=== PATIENT | female | born 1945 | race Caucasian/White ===

== ENCOUNTER 2020-02-02 07:26 | Outpatient (CLI) | payer MEDICARE, OTHER, SELFPAY ==
--- NOTE | ~2020-02-02 | XR_ITS ---
EXAMINATION: XR UGI w barium swallow DATE: 02/02/2020 08:30 INDICATION: Hiatal hernia. Gastroesophageal reflux disease without esophagitis. TECHNIQUE: The patient drank thick barium, gas-producing crystals, and thin barium. Fluoroscopic spot radiographs of the hypopharynx, esophagus, stomach and proximal small bowel were obtained. A total o f 1543 images were recorded. Fluoroscopy exposure time was 2.2 minutes. COMPARISON: None. FINDINGS: The pharynx is symmetric and without evidence of mass lesion or mucosal irregularity. There is a prom inent posterior cricopharyngeal muscle at the upper esophageal sphincter. The esophagus is normal wit hout mass or stricture. Mild esophageal dysmotility with mild weakening of the primary peristaltic wa ve and break up of the contrast bolus on one of the swallows and with mild tertiary contractions in t he distal esophagus. Moderate-sized sliding-type hiatal hernia with esophageal B ring at the gastroes ophageal junction which is positioned approximately 7 cm above level of the diaphragm. No significant stenosis resulting from the esophageal B ring which dilates to at least 1.8 cm. There was a single e pisode of spontaneous gastroesophageal reflux. There was reflux of contrast into the intrathoracic po rtion of the stomach but not additional gastroesophageal reflux with subsequent provocative maneuvers . The stomach and proximal small bowel are normal. Calcified left lower lobe nodule consistent with o ld granulomatous disease. IMPRESSION: 1. Moderate-sized sliding-type hiatal hernia with single episode of small amount of gastroesophageal reflux. Line 2. Prominent cricopharyngeal muscle. 3. Minimal esophageal dysmotility which could be related to presbyesophagus or chronic reflux. Reviewed, dictated and finalized at location A. ER PHOTOGRAPH IMPRESSION: 1. Moderate-sized sliding-type hiatal hernia with single episode of small amoun t of gastroesophageal reflux. Line 2. Prominent cricopharyngeal muscle. 3. Minimal esophageal dysmotility which could be related to presbyesophagus or chronic reflux.
== END 2020-02-02 07:27 | disposition home or self-care (01) ==
LOC: ANHIMG 07:29
PROVIDERS: PCP Internal Medicine; Visit Provider Surgery
DX: K21.9 Gastro-esophageal reflux disease without esophagitis (principal); K44.9 Diaphragmatic hernia without obstruction or gangrene; R13.10 Dysphagia, unspecified
CPT/HCPCS: 74240

== ENCOUNTER → 2020-02-02 12:12 | Outpatient (CLI) | payer MEDICARE, OTHER, SELFPAY ==
--- NOTE | ~2020-02-02 | MM_ITS ---
EXAMINATION: MM screening [facility] BI w sylwia HISTORY: Screening TECHNIQUE: Craniocaudal and mediolateral oblique 3-D tomosynthesis images were obtained and synthetic 2-D images were generated. CAD analysis was submitted and interpreted. COMPARISON: Comparison to multiple prior studies sequentially, with oldest reviewed study dated 06/2012. BREAST PARENCHYMAL COMPOSITION: There are scattered areas of fibroglandular density. FINDINGS: There is no evidence of suspicious mass, calcification, or architectural distortion to sugg est malignancy in either breast. There has been no suspicious interval change. IMPRESSION: 1. No mammographic evidence of malignancy. 2. Recommend routine screening mammography in one year. BI-RADS Category 1: Negative Reviewed, dictated and finalized at location A. IA WRAPPER MAKER
== END ==
PROVIDERS: PCP Internal Medicine; Visit Provider Internal Medicine
DX: Z12.31 Encounter for screening mammogram for malignant neoplasm of breast (principal)
CPT/HCPCS: 77063; 77067

== ENCOUNTER 2020-03-20 13:51 | Outpatient (CLI) | payer MEDICARE, OTHER, SELFPAY ==
--- NOTE | ~2020-03-20 | CT_ITS ---
EXAMINATION: CT abdomen pelvis wo con EXAM DATE: 03/20/2020 14:16 INDICATION: R10.33 - Periumbilical pain. TECHNIQUE: Spiral CT of the abdomen and pelvis was performed without contrast. Axial, coronal and sag ittal images were reviewed. The dose-length product (DLP) for this examination was 943.57 mGy-cm. T he exposure was tailored according to patient size (auto mA exposure control), and iterative reconstr uction (ASIR) was used as additional dose reduction technique. There is no prior study for compariso n. FINDINGS: Multicystic right kidney with minimal functioning tissue suspected. No nephrolithiasis or h ydronephrosis. The uterus is not identified and has likely been surgically resected. The bladder is unremarkable. The liver, spleen, adrenal glands and pancreas are unremarkable. Gallbladder not lorie ntified, patient likely has had cholecystectomy. There is no retroperitoneal or pelvic lymphadenopat hy. Tiny umbilical fat-containing hernia. The appendix is normal. There is mild sigmoid colonic diverticulosis. There is no adjacent inflammat ory change to suggest diverticulitis. There is small sliding gastroesophageal hiatal hernia. There i s expected amount of colonic stool. No free intraperitoneal gas. The heart is normal in size. Th ere are no pericardial or pleural effusions. The lung bases are unremarkable. There are no osteobla stic or osteolytic lesions identified. There is left basilar calcified granuloma. IMPRESSION: 1. Small umbilical fat-containing hernia. 2. Small sliding gastroesophageal hiatal hernia. 3. Multicystic right kidney. 4. Mild sigmoid diverticulosis. Reviewed, dictated and finalized at location A. CONTROL REPRESENTATIVE
== END 2020-03-20 13:52 | disposition home or self-care (01) ==
PROVIDERS: PCP Internal Medicine; Visit Provider Surgery
DX: R10.33 Periumbilical pain (principal); K44.9 Diaphragmatic hernia without obstruction or gangrene; K42.9 Umbilical hernia without obstruction or gangrene; N28.1 Cyst of kidney, acquired; K57.30 Diverticulosis of large intestine without perforation or abscess without bleeding
CPT/HCPCS: 74176

== ENCOUNTER 2020-07-29 07:54 | Outpatient (CLI) | payer MEDICARE, OTHER, SELFPAY ==
[2020-07-29 08:34] LABS: Hemoglobin A1C 6.2 % (<5.7)
[2020-07-29 08:41] LABS: Alanine Aminotransferase 11 U/L (4-35); Albumin Level 3.9 g/dL (3.5-5.1); Alkaline Phosphatase 85 U/L (38-126); Anion Gap 8 mmol/L (8-16); Aspartate Amino Transferase 24 U/L (14-36); Bilirubin,Total 0.3 mg/dL (0.2-1.3); Blood Urea Nitrogen 15 mg/dL (7-17); Calcium 9.1 mg/dL (8.4-10.2); Carbon Dioxide 28 mmol/L (22-30); Chloride 104 mmol/L (98-107); Cholesterol 190 mg/dL (0-200); Estimated Glomerular Filt Rate 54; Glucose 115 mg/dL (65-105); HDL Direct 60 mg/dL; Potassium 3.6 mmol/L (3.4-5.0); Sodium 140 mmol/L (137-145); Triglycerides 144 mg/dL (<150)
[2020-07-29 13:21] LABS: LDL Cholesterol Direct 84 mg/dL
== END 2020-07-29 07:55 | disposition home or self-care (01) ==
PROVIDERS: PCP Internal Medicine; Visit Provider Internal Medicine
DX: E78.2 Mixed hyperlipidemia (principal); R73.02 Impaired glucose tolerance (oral)
CPT/HCPCS: 36415; 80053; 80061; 83036

== ENCOUNTER 2020-09-03 01:14 | Day surgery (SDC) | payer MEDICARE, OTHER, SELFPAY ==
[2020-08-15 13:25] VITALS: BMI 37.8
--- NOTE | 2020-08-16 16:24 | PC.NURSE ---
SPOKE WITH PATIENT CONCERNING LUMP ON LEG. PT STATES IT IS SWOLLEN AND ABOUT THE SIZE OF AN EGG OR LEMON SHE STATES IT IS NOT RED NOR SORE. DR. LOMBARDO EXAMINED HER IN THE OFFICE AND ORDERED A DOPPLER ULTRASOUND TO R/O A BLOOD CLOT. PT STATES HE TOLD IT WAS UP TO HER IF SHE WANTED TO FOLLOW THROUGH WITH THE ULTRASOUND OR NOT. PT STATES SHE IS NOT CONCERNED ABOUT IT BUT DID SCHEDULE THE APPT. AND THEY COULD NOT GET HER IN FOR ONE MONTH, IT IS SCHED. ONE WEEK AFTER HER COLONOSCOPY. I TOLD HER THAT IF IT WOULD BECOME RED-INFLAMED OR SORE SHE SHOULD CALL DR. LOMBARDO IMMEDIATELY AND LET DR. AHMADI OFFICE ALSO KNOW.
[2020-09-03 08:02] VITALS: BP 151/62; PULSE 85; RESP 20; TEMP 36.2; O2SAT 100
[2020-09-03] MEDS: LACTATED RINGERS 1,000 ML 150 ML IV CONT (08:36)
--- NOTE | 2020-09-03 09:23 | PM.HPGS ---
History of Present Illness History of Present Illness Consent: Risks, benefits, and alternatives have been discussed and questions answered. Patient agrees to proceed with procedure. Chief complaint: neoplasm screening Narrative: Summer Arellano is a 74 year old female with several TA polyps removed 2019, due to have another colonoscopy Review of Systems Constitutional: Constitutional: Denies headache(s) and Denies weakness Eyes: Eyes: Denies blurry vision ENT: Reports Normal hearing present, Denies headache(s) and Denies neck pain Cardiovascular: Cardiovascular: Denies chest pain and Denies dyspnea Respiratory: Respiratory: Denies dyspnea Gastrointestinal: Gastrointestinal: Reports no additional gastrointestinal complaints Genitourinary: Genitourinary: Denies dysuria Musculoskeletal: Musculoskeletal: Denies neck pain Integumentary/Breasts: Skin/Breast: Denies dry skin Neurologic: Reports Normal hearing present, Denies headache(s) and Denies weakness Psychiatric: Psychiatric: Denies anxiety Endocrine: Endocrine: Denies change in body appearance Hematologic/Lymphatic: Hematologic/Lymphatic: Denies easy bleeding Allergic/Immunologic: Allergic/Immunologic: Denies urticaria PMF Past Medical History Medical History (Updated 05/22/20 @ 14:06 by MAI Velez) Achilles tendinitis CHF (congestive heart failure) Constipation GERD (gastroesophageal reflux disease) Heart disease High cholesterol History of blood transfusion 1985 Mitral valve prolapse Surgical History Surgical History H/O: hysterectomy History of knee replacement Hx of cholecystectomy Status post de Quervain's release surgery Status post surgical removal of malignant neoplasm of skin Family History Family History Mother Lung cancer Sibling COPD (chronic obstructive pulmonary disease) Grandparent Diabetes mellitus Other Family history of arthritis Family history of lung cancer Social History Social History Smoking status: Never smoker Alcohol intake: never Substance use: unknown Substance use type: does not use Living arrangements: alone Gender identity (if verbalized by the patient): Female Meds Home Medications and Allergies Home Medications Medication Instructions Recorded Confirmed Type alprazolam 0.5 mg tablet 0.5 mg PO DAILY 01/26/20 08/15/20 History fentanyl 50 mcg/hr transdermal 1 patch TRANSDERMAL Q72H 01/26/20 08/15/20 History patch furosemide 40 mg tablet 40 mg PO QAM 01/26/20 08/15/20 History omeprazole 40 mg capsule,delayed 40 mg PO DAILY 01/26/20 08/15/20 History release pregabalin 75 mg capsule 75 mg PO BID 01/26/20 08/15/20 History simvastatin 10 mg tablet 10 mg PO DAILY 01/26/20 08/15/20 History aspirin 81 mg PO DAILY 08/15/20 08/15/20 History vitamins A,C,I-iqsy-tvgnpo [ICaps 1 tablet PO ONCE 08/15/20 08/15/20 History AREDS] Allergies Allergy/AdvReac Type Severity Reaction Status Date / Time prednisone Allergy Intermediate DEEP Verified 09/03/20 08:00 DEPRESSION topiramate Allergy Intermediate MIGRAINE Verified 09/03/20 08:00 carbamazepine Allergy Mild I Verified 09/03/20 08:00 COULDN'T TALK adhesive tape Allergy Unknown RASH Verified 09/03/20 08:00 bacitracin Allergy Unknown rash Verified 09/03/20 08:00 neomycin Allergy Unknown ITCHING/BURNING Verified 09/03/20 08:00 SENSATION Penicillins Allergy Unknown Rash Verified 09/03/20 08:00 polymyxin B Allergy Unknown Rash Verified 09/03/20 08:00 clindamycin Allergy Hives Verified 09/03/20 08:00 morphine AdvReac Intermediate Other Verified 09/03/20 08:00 cephalexin [From Keflex] AdvReac Mild Rash Verified 09/03/20 08:00 nickel AdvReac Mild SKIN MILLIGAN Verified 09/03/20 08:00 oxytetracycline AdvReac Rash Verified 09/03/20 08:00
[2020-09-03 09:52] VITALS: BP 127/70; PULSE 64; RESP 19; O2SAT 94
[2020-09-03 10:02] VITALS: BP 128/52; PULSE 55; RESP 19; O2SAT 97
[2020-09-03 10:12] VITALS: BP 132/77; PULSE 58; RESP 18; O2SAT 97
== END 2020-09-03 10:33 | disposition home or self-care (01) ==
PROVIDERS: PCP Internal Medicine; Visit Provider Internal Medicine Gastroenterology
PROC: 0DJD8ZZ Inspection of Lower Intestinal Tract, Via Natural or Artificial Opening Endoscopic (ICD-10-PCS; CPT 45378; principal; 2020-09-03 09:30)
DX: Z12.11 Encounter for screening for malignant neoplasm of colon (principal); D12.2 Benign neoplasm of ascending colon; K63.5 Polyp of colon; K64.8 Other hemorrhoids; I50.9 Heart failure, unspecified; K21.9 Gastro-esophageal reflux disease without esophagitis; I34.1 Nonrheumatic mitral (valve) prolapse; Z90.49 Acquired absence of other specified parts of digestive tract; Z79.82 Long term (current) use of aspirin
CPT/HCPCS: 45385; 88305; J2704; J7120

== ENCOUNTER 2021-01-24 07:55 | Outpatient (CLI) | payer MEDICARE, OTHER, SELFPAY ==
[2021-01-24 08:55] LABS: Hemoglobin A1C 6.1 % (<5.7)
[2021-01-24 08:57] LABS: Alanine Aminotransferase 14 U/L (4-35); Albumin Level 4.2 g/dL (3.5-5.1); Alkaline Phosphatase 95 U/L (38-126); Anion Gap 7 mmol/L (8-16); Aspartate Amino Transferase 24 U/L (14-36); Bilirubin,Total 0.6 mg/dL (0.2-1.3); Blood Urea Nitrogen 12 mg/dL (7-17); CRP 0.5 mg/dL (<1.0); Calcium 9.2 mg/dL (8.4-10.2); Carbon Dioxide 29 mmol/L (22-30); Chloride 100 mmol/L (98-107); Cholesterol 193 mg/dL (0-200); Estimated Glomerular Filt Rate > 60; Glucose 113 mg/dL (65-110); HDL Direct 66 mg/dL; Potassium 3.6 mmol/L (3.4-5.0); Sodium 136 mmol/L (137-145); Triglycerides 174 mg/dL (<150)
[2021-01-24 09:00] LABS: Erythrocyte Sedimentation Rate 21 mm/hr (0-20)
[2021-01-24 09:08] LABS: LDL Cholesterol Direct 80 mg/dL
[2021-01-24 10:22] LABS: Creatinine Urine 168.7 mg/dL
[2021-01-24 10:38] LABS: MALB Creatinine Ratio < 3.6 mg/g (0-30); Microalbumin Urine Random < 6.0 mg/L (0-16.7)
== END 2021-01-24 07:56 | disposition home or self-care (01) ==
PROVIDERS: PCP Internal Medicine; Referring Provider Internal Medicine
DX: M25.562 Pain in left knee (principal); E78.2 Mixed hyperlipidemia; R73.02 Impaired glucose tolerance (oral)
CPT/HCPCS: 36415; 80053; 80061; 82043; 83036; 85652; 86140

== ENCOUNTER 2021-07-29 09:25 | Outpatient (CLI) | payer OTHER, SELFPAY ==
[2021-07-29 10:05] LABS: Hemoglobin A1C 6.1 % (<5.7)
[2021-07-29 10:17] LABS: LDL Cholesterol Direct 74 mg/dL
[2021-07-29 10:27] LABS: Alanine Aminotransferase 11 U/L (6-35); Alkaline Phosphatase 91 U/L (38-126); Anion Gap 5 mmol/L (8-16); Aspartate Amino Transferase 22 U/L (14-36); Bilirubin,Total 0.5 mg/dL (0.2-1.3); Blood Urea Nitrogen 11 mg/dL (7-17); Carbon Dioxide 29 mmol/L (22-30); Chloride 105 mmol/L (98-107); Cholesterol 185 mg/dL (0-200); Estimated Glomerular Filt Rate > 60; Glucose 131 mg/dL (65-110); HDL Direct 61 mg/dL; Potassium 3.7 mmol/L (3.4-5.0); Sodium 139 mmol/L (137-145); Triglycerides 164 mg/dL (<150)
== END 2021-07-29 09:26 | disposition home or self-care (01) ==
PROVIDERS: PCP Internal Medicine; Visit Provider Internal Medicine
DX: E78.2 Mixed hyperlipidemia (principal); R73.02 Impaired glucose tolerance (oral)
CPT/HCPCS: 36415; 80053; 80061; 83036

== ENCOUNTER → 2021-10-15 13:27 | Outpatient (CLI) | payer OTHER, SELFPAY ==
--- NOTE | ~2021-10-15 | MM_ITS ---
EXAMINATION: MM screening [facility] BI w sylwia HISTORY: Screening TECHNIQUE: Craniocaudal and mediolateral oblique 3-D tomosynthesis images were obtained and synthetic 2-D images were generated. CAD analysis was submitted and interpreted. COMPARISON: Comparison to multiple prior studies sequentially, with oldest reviewed study dated 06/2012. BREAST PARENCHYMAL COMPOSITION: There are scattered areas of fibroglandular density. FINDINGS: There is no evidence of suspicious mass, calcification, or architectural distortion to sugg est malignancy in either breast. There has been no suspicious interval change. IMPRESSION: 1. No mammographic evidence of malignancy. 2. Recommend routine screening mammography in one year. BI-RADS Category 1: Negative Reviewed, dictated and finalized at location A.
== END ==
PROVIDERS: PCP Internal Medicine; Visit Provider Internal Medicine
DX: Z12.31 Encounter for screening mammogram for malignant neoplasm of breast (principal)
CPT/HCPCS: 77063; 77067

== ENCOUNTER 2022-02-04 09:18 | Outpatient (CLI) | payer OTHER, SELFPAY ==
[2022-02-04 11:01] LABS: Alanine Aminotransferase 19 U/L (6-35); Albumin Level 4.3 g/dL (3.5-5.1); Alkaline Phosphatase 88 U/L (38-126); Anion Gap 6 mmol/L (8-16); Aspartate Amino Transferase 31 U/L (14-36); Bilirubin,Total 0.5 mg/dL (0.2-1.3); Blood Urea Nitrogen 9 mg/dL (7-17); Calcium 8.9 mg/dL (8.4-10.2); Carbon Dioxide 31 mmol/L (22-30); Chloride 100 mmol/L (98-107); Cholesterol 202 mg/dL (0-200); Estimated Glomerular Filt Rate > 60; Glucose 113 mg/dL (65-110); HDL Direct 61 mg/dL; Potassium 3.2 mmol/L (3.4-5.0); Sodium 137 mmol/L (137-145); Triglycerides 200 mg/dL (<150)
[2022-02-04 11:12] LABS: LDL Cholesterol Direct 81 mg/dL
[2022-02-04 11:38] LABS: Hemoglobin A1C 6.3 % (<5.7)
== END 2022-02-04 09:19 | disposition home or self-care (01) ==
LOC: ANHLAB 09:20
PROVIDERS: PCP Internal Medicine; Visit Provider Internal Medicine
DX: E78.2 Mixed hyperlipidemia (principal); R73.02 Impaired glucose tolerance (oral)
CPT/HCPCS: 36415; 80053; 80061; 83036

== ENCOUNTER 2022-08-12 09:46 | Outpatient (CLI) | payer OTHER, SELFPAY ==
[2022-08-12 10:21] LABS: Alanine Aminotransferase 19 U/L (6-35); Albumin Level 4.2 g/dL (3.5-5.1); Alkaline Phosphatase 83 U/L (38-126); Anion Gap 4 mmol/L (8-16); Aspartate Amino Transferase 28 U/L (14-36); Bilirubin,Total 0.6 mg/dL (0.2-1.3); Blood Urea Nitrogen 14 mg/dL (7-17); Calcium 8.6 mg/dL (8.4-10.2); Carbon Dioxide 31 mmol/L (22-30); Chloride 103 mmol/L (98-107); Cholesterol 187 mg/dL (0-200); Estimated Glomerular Filt Rate > 60; Glucose 124 mg/dL (65-110); HDL Direct 66 mg/dL; Potassium 3.6 mmol/L (3.4-5.0); Sodium 138 mmol/L (137-145); Triglycerides 158 mg/dL (<150)
[2022-08-12 10:34] LABS: LDL Cholesterol Direct 80 mg/dL
[2022-08-12 10:44] LABS: Creatinine Urine 102.3 mg/dL
[2022-08-12 10:49] LABS: MALB Creatinine Ratio < 5.9 mg/g (0-30); Microalbumin Urine Random < 6.0 mg/L (0-16.7)
== END 2022-08-12 09:47 | disposition home or self-care (01) ==
PROVIDERS: PCP Internal Medicine; Visit Provider Internal Medicine
DX: R73.02 Impaired glucose tolerance (oral) (principal); E78.2 Mixed hyperlipidemia; I10 Essential (primary) hypertension
CPT/HCPCS: 36415; 80053; 80061; 82043; 83036

== ENCOUNTER → 2022-12-03 14:01 | Outpatient (CLI) | payer OTHER, SELFPAY ==
--- NOTE | ~2022-12-03 | MM_ITS ---
EXAMINATION: MM screening [facility] BI w sylwia HISTORY: Screening mammogram TECHNIQUE: Craniocaudal and mediolateral oblique 3-D tomosynthesis images were obtained and synthetic 2-D images were generated. CAD analysis was submitted and interpreted. COMPARISON: 10/11/2021, 02/02/2020, 11/11/2018 bilateral screening mammogram examinations BREAST PARENCHYMAL COMPOSITION: The breasts are almost entirely fatty. FINDINGS: Scattered benign calcifications. There is no evidence of suspicious mass, calcification, or architectural distortion to suggest malignancy in either breast. There has been no suspicious interv al change. IMPRESSION: 1. No mammographic evidence of malignancy. 2. Recommend routine screening mammography in one year. BI-RADS Category 2: Benign finding(s). Reviewed, dictated and finalized at location A.
== END ==
PROVIDERS: PCP Internal Medicine; Visit Provider Internal Medicine
DX: Z12.31 Encounter for screening mammogram for malignant neoplasm of breast (principal)
CPT/HCPCS: 77063; 77067

== ENCOUNTER 2023-12-06 13:08 | Outpatient (CLI) | payer OTHER, SELFPAY ==
--- NOTE | ~2023-12-06 | MM_ITS ---
EXAMINATION: MM screening [facility]bert BI w sylwia HISTORY: Screening TECHNIQUE: Craniocaudal and mediolateral oblique 3-D tomosynthesis images were obtained and synthetic 2-D images were generated. CAD analysis was submitted and interpreted. COMPARISON: Comparison to multiple prior studies sequentially, with oldest reviewed study dated 11/21. BREAST PARENCHYMAL COMPOSITION: Not dense: There are scattered areas of fibroglandular density. FINDINGS: There is no evidence of suspicious mass, calcification, or architectural distortion to sugg est malignancy in either breast. There has been no suspicious interval change. IMPRESSION: 1. No mammographic evidence of malignancy. 2. Recommend routine screening mammography in one year. BI-RADS Category 1: Negative Reviewed, dictated and finalized at location B.
== END 2023-12-06 13:09 | disposition home or self-care (01) ==
PROVIDERS: PCP Internal Medicine; Visit Provider Internal Medicine
DX: Z12.31 Encounter for screening mammogram for malignant neoplasm of breast (principal)
CPT/HCPCS: 77063; 77067

== ENCOUNTER 2025-01-01 10:08 | Outpatient (CLI) | payer MEDICARE, SELFPAY ==
--- OUTSIDE RECORDS SUMMARY | 2009-10-09 02:30 | XMS_ITS | Continuity of Care Document ---
Author Organization [facility] Address [address] [place] [address] Phone Care Team Providers Care Grating Machine Operator Name Role Phone Aj Simmons Unavailable Unavailable Procedures Procedure Date Eye Exam & Treatment Dilated Retinal Exam W Interpretation Au Refraction Eye Exam & Treatment Dilated Retinal Exam W Interpretation Ju No Script Refraction Eye Exam & Treatment Refraction Advance Directives Directive Yes / No Effective Date File Name No Information Encounters Encounter Description Practice Location Reason(s) For Visit Diagnoses Date Provider Providers Copied on Encounter [facility], [address] [place] [address] [address], [place], [place], [id number], tel:[phone] [facility] No Information 8-201 0 Iris Rocha. [address] , [address], [place], [place], [facility], . tel:[phone] [facility], [id number] [place] [address] [address], [place], [place], [id number], [place] tel:[phone] [facility] No Information 1-200 9 Iris Rocha. [address] , [address], [place], [place], [facility], . tel:[phone] [facility], [id number] [place] [address] [address], [place], [place], [id number], tel:[phone] [facility] No Information 8 Iris Rocha. [address] , [address], [place], [address], [place]. tel:[phone] Family History Family Member Type Diagnosis Age At Onset No Information Payers Payer name Insurance type Covered green party ID Authoriza tion(s) [place] [id number] [facility] Commercial CI [id number] Social History Type Description Quantity Date Captured Comments Sex Female Smoking Status No Information Chief Complaint And Reason For Visit No Information Reason For Referral Reason For Referral No Information History Of Present Illness Encounter Date Complaint History Of Prese nt Illness No Information Functional Status Date Functional Assessmen t No Information Instructions Date Instruction Additional Infor mation No Information Assessments Type Assessment Date No Information Patient Care Teams Name Effective Dates (start - stop) Status Members No Information
--- OUTSIDE RECORDS SUMMARY | 2025-01-01 10:50 | XMS_ITS | Data Portability ---
Author Organization [facility], [facility] Address [address] [place] [address] Care Team Providers Care Health Promoter Name Role Phone LEONARD LOMBARDO Primary Care Provider [phone] Assessment Encounter Date Assessment Date Assessment LastModified by Organization Details LastModified Time 09/18/2022 09/18/2022 76 y/o female with history of nephrectomy (1 kidney) hypertension, pre-diabetes, congestive heart failure, and dyslipidemia. Presenting with bilateral lower extremity pain at rest. This most likely represents critical limb ischemia which puts him at a high risk for skin breakdown and/or loss of limb. In addition, she displays symptoms of venous insufficiency with lower extremity edema with CEAP grade 3 bilaterally. She reports she has tried wearing compression stockings but they cause her more pain. My recommendation is lower extremity arterial and venous ultrasound for further evaluation. I will discuss with her the results of her lower extremity ultrasounds with her at her follow up visit. Of note, she also reports having sciatica with degenerative disk disease which could be contributing to her inability to walk longer distances. I spent a total of 45 minutes with the patient. The time was spent reviewing the chart ,discussing with patient and/or family and forming a treatment plan. [email or web address] Not available 09/19/2022 01:18:53 Plan of Treatment Reminders Order Date Submit Date Provider Last Modified By Organization Details Last Modified Time Details Appointments None record ed. Lab None record ed. Referral None record ed. Procedures None record ed. Surgeries None record ed. Imaging None record ed. Medication Orders None record ed. Patient TargetsNo targets recorded. Patient InstructionsNo instructions recorded. Reason for Referral None Reported. Medical Equipment None Reported. Allergies Allergen ID Allergen Name Allergen Category Reaction Reaction Severity Criticality Documentation Date Start Date Code Code System Note Provider Name and Address Organization Details Recorded Time 8789 Product containin g penicilli n (product) medicatio n Not available Not available Not available 09/18/2022 31948 8001 SNOMED [facility] 11:36:23 8865 Keflex medicatio n Not available Not available Not available 09/18/202243205 7 RxNorm [facility] 11:36:30 8866 Iodinated contrast media (substanc e) medicatio n Not available Not available Not available 09/18/2022 02017 2003 SNOMED [facility] 11:36:50 Medications Name Sig Start Date Stop Date Status Note LastModified by Organization Details LastModified Time furosemide 10 mg/mL injection solution Inject 4 mL twice a day by intramuscul ar route. active Not Available Not Available No t Available Xanax 0.5 mg tablet Take 1 tablet 3 times a day by oral route. active Not Available Not Available No t Available omeprazole 40 mg capsule,lucina yed release Take 1 capsule every day by oral route. active Not Available Not Available No t Available simvastatin 40 mg tablet Take 1 tablet every day by oral route. active Not Available Not Available No t Available doxycycline monohydrate 50 mg tablet active Not Available Not Available Not Available amlodipine active Not Available Not Av ailable Not Available Vitals Date Recorded Body height Body mass index (BMI) Body weight Provider Name and Address Organization Details Last Updated DateTime 09/18/2022 160.02 cm 37.2 kg/m2 33347.4 g [facility] 09/18/2022 11:35:55 Social History Question Answer Notes LastModified by Organizat ion Details LastModified Time Tobacco Smoking Status Never Smoker [facility] 09/18/2022 11:39:07 What Was The Date Of Your Most Recent Tobacco Screening? 09/18/2022 [email or web address] Information not available 09/18/2022 Sex: Unknown Functional Status None recorded. Mental Status None recorded. Family History Nothing Reported. Medical History Condition Response Hyperlipidemia Y Heart Disease Y Kidney Disease Y Gynecological HistoryNo gynecological history recorded. Obstetrics History GPAL:G 0 P 0 0 0 0 Past Encounters Encounter ID Performer Location Encounter Start Date Encounter Closed Date Diagnosis/Indication Diagnosis SNOMED-CT Code Diagnosis ICD10 Code Diagnosis IMO Codes Diagnosis Note Duarte Newton MD [facility] ) [address] [place] [address] 09/18/2022 11:15:29 09/21/2022 12:31:56 Varicose veins of lower extremity 34077589 I83.893 Primary ve nous insufficiency of lower limb 799142925 I87.2 Bilateral lower limb pain at rest due to atherosclerosis 0530884726 4037404 I70.223 Edema of l ower extremity 351817272 R60.0 Health Concerns Section Related Observation LastModified by Organization Detai ls LastModified Time None Recorded Concern Status LastModified by Organization Details LastModified Time None Recorded Advance Directives Directive None Recorded Payers Insurance Date Sequence Insurance Name Policy Number Policy Quintana Covered Member ID Quintana Member ID Guarantor Name 09/21/2022 1 [facility] (MEDICARE REPLACEMENT HMO) [id number] [employer] [place] [id number] [employer] [place] Notes Date Note Type Note Provider Name and Address Organization Details Recorded Time 09/19/19 23 text/htm l OA Arterial Occlusive Disease: Lower ExtremityReported by PatientHPIFor severity, patient reportsmoderate. For associated symptoms, patient reportsweakness. For location, patient reportsbilateral le (left is worse than right). For quality, patient reportsaching. For onset/timing, patient reportsat night,with exercise begins at <1/2 block, andwakes from sleep. For alleviating factors, patient reportsrestandelevation. For aggravating factors, patient reportswalkingandstanding. For context, (pre-diabetes). Varicose Vein or Venous insufficiencyReported by PatientHPIFor quality, patient reportsachingandthrobbingbut reportsworse at nightandlegs do not swell equally (left swells more than right). For associated symptoms, patient reportsswelling,heaviness,discol oration, andcharacter: cramping. For severity, patient reportsmoderate. For location, patient reportsbilateral (left is worse than right). For context, patient reportscompression stockings (for how long?) 6 months (she stated that they do not help.she states the compression therapy causes more pain.). For alleviating factors, patient reportselevationandrest. For aggravating factors, patient reportsweight bearingandprolonged standing. For functional status, patient reportsactivities of daily living. For sleep, patient reportssleep disturbances: insomnia: difficulty falling asleep: because of pain. 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
--- OUTSIDE RECORDS SUMMARY | 2025-01-01 10:50 | XMS_ITS | Clinical Summary ---
Author Organization [facility] Address [address] [place] [address] Care Team Providers Care Business Programmer Name Role Phone Clifford Cruz MD Primary Care Provider Source Comments [facility],non-owned Affiliates and Associated Physician Practices is amultiple site organization consisting of ambulatory clinics and hospital sitesin [place], [place], [place] and [place]. This disclosure is being madepursuant to the Care Everywhere program and may not contain all information available regarding this patient. Last updated 17.[facility] Allergies Active Allergy Reactions Criticality Noted Date Comments Bacitracin Rash Medium 12/17/2020 Reaction: rash, blisters, , Reaction: rash, blisters, Carbamazepine Other 12/17/2020 Reaction: felt slow with speech, Cephalexin Rash Medium 01/27/2017 Rash and itching. Clindamycin Urticaria Medium 04/18/2018 Reaction: hives, rash, Dibucaine Other Low 12/17/2020 Reaction: skin irritation, pain, burning, Gkacksjw-Vingkheuoa-Enujc yxin Itching 04/18/2018 Penicillins Urticaria,Other Medium 04/18/2018 Reaction: Other, , , Polymyxin B Rash High 12/17/2020 Reaction: rash, blisters, Prednisone Psychiatric,Other Medium 04/18/2018 depression Sertraline Psychiatric Medium 12/17/2020 Topiramate Headache,Other Low 04/18/2018 migraine Venlafaxine Urticaria Medium 12/17/2020 Reaction: Hives, , , Medications * Be aware that medications may not be up to date on this document. Alwaysverify current medications with the patient. ALPRAZolam (XANAX) 0.5 MG tablet 12/16/2020 Active fentaNYL (DURAGESIC) 50 MCG/HR patch APPLY ONE PATCH TO THE SKIN ONCE EVERY 3 DAYS (REMOVE OLD PATCH BEFORE APPLYING A NEW PATCH) 12/16/2020 Active furosemide (LASIX) 40 MG tablet 11/19/2020 Active hydrOXYzine hcl (ATARAX) 25 MG tablet 09/11/2020 Active omeprazole (PRILOSEC) 40 MG capsule 11/19/2020 Active pregabalin (LYRICA) 75 MG capsule 09/12/2020 Active simvastatin (ZOCOR) 20 MG tablet 11/19/2020 Active tobramycin-dexA METHasone (TOBRADEX) 0.3-0.1 % ophthalmic suspension 07/21/2019 Active Active Problems Problem Noted Date Diagnosed Date Unstable angina 05/14/2021 Varicose veins of both lower extremities 021 Overview (05/23/2021): Last Assessment & Plan: Patient has been small minimal asymptomatic varicose veins of the left calf. This is not consistent with her ongoing chronic discomfort of her lower extremities particularly involving the left knee joint. She has had a previous venous duplex which is negative for DVT. She does not require further vascular workup. Continue exercise attempted weight loss compression therapy and follow-up with me on a p.r.n. basis. She has no known vascular Issues that would preclude left total knee replacement. 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 Gender Identity Not on file Sexual Orientation Not on file Last Filed Vital Signs Vital Sign Reading Time Taken Comments Blood Pressure - - Pulse - - Temperature - - Respiratory Rate - - Oxygen Saturation - - Inhaled Oxygen Concentration - - Weight 95.3 kg (210 lb) 12/17/2020 1:41 PM CDT Height 160 cm (5' 3) 12/17/2020 1:41 PM CDT Body Mass Index 37.2 12/17/2020 1:41 PM CDT Plan of Treatment Health Maintenance Due Date Last Done Comments BONE DENSITY TESTING 1945 DTAP/TDAP/TD VACCINES (1 - Tdap) 09/21/1962 PNEUMOCOCCAL VACCINE 50+ (1 of 1 - PCV) 09/21/1993 ZOSTER VACCINE (1 of 2) 09/21/1993 Respiratory Syncytial Virus (RSV) Vaccine Pt: or over 60 yrs (1 - 1-dose 75+ series) 09/21/2018 DEPRESSION SCREENING 02/23/2024 MEDICARE AWV CALENDAR YEAR 2024 COVID-19 VACCINE ( - season) 2024 12/03/2022, 05/07/2020, 04/16/2020 INFLUENZA VACCINE (#1) 2024 , 11/15/2020, 12/06/2019, Additional history exists HEPATITIS B VACCINE Aged Out No longe r eligible based on patient's age to complete this topic HIB VACCINE Aged Out No longer eligi ble based on patient's age to complete this topic HPV VACCINE Aged Out No longer eligi ble based on patient's age to complete this topic MENINGOCOCCAL (Group B) VACCINE SHARED DECISION-MAKING Aged Out No longer eligible based on patient's age to complete this topic MENINGOCOCCAL GROUPS A/C/Y/W VACCINE Aged Out No longer eligible based on patient's age to complete this topic Insurance [employer] MANAGED MEDICARE ADV Care Teams Business Programmer Relationship Specialty Start Date End Date Clifford Cruz MD [address] [facility] [address] [place] [id number] PCP - General Internal Medicine 12/17/20
--- OUTSIDE RECORDS SUMMARY | 2025-01-01 10:50 | XMS_ITS | Encounter Summary ---
Author Organization [facility] Address [address] [facility] [place] [address] Care Team Providers Care Managing Partner Name Role Phone Clifford Cruz MD Primary Care Provider Encounter Details Date Type Department Care Team (Late st Contact Info) Description 04/26/2023 Lab Requisition [facility] - DermPath Lab [address] [facility] [place] [address] Rose Mary Arroyo MD [address] [facility] [address] [place] [address] Social History Tobacco Use Types Packs/Day Years Used Date Smoking Tobacco: Never Smokeless Tobacco: Never Comments Unknown Sex and Gender Information Value Date Recorded Sex Assigned at Not on file Legal Sex Female 6:05 PM DOCK SUPERINTENDENT Gender Identity Not on file Sexual Orientation Not on file documented as of this encounter Plan of Treatment Not on file documented as of this encounter Procedures Procedure Name Priority Date/Time Associated Diagnosis Comments DERMATOPATHOLOGY Routine 04/26/2023 1:03 PM DOCK SUPERINTENDENT documented in this encounter Results * DERMATOPATHOLOGY (04/26/2023 1:03 PM DOCK SUPERINTENDENT) Case Report Dermatopathology Report Case: [id number] Authorizing Provider: Rose Mary Arroyo MD Collected: 04/26/2023 01:03 PM Ordering Location: [facility] - Received: 04/27/2023 12:25 PM DermPath Lab Pathologist: Pascale Chapman MD Specimen: Skin, right cheek 11:22 AM DOCK SUPERINTENDENT DERMATOPATHOLOGY LABORATORY Final Diagnosis Specimen A. SKIN, right cheek: BENIGN VERRUCOUS KERATOSIS (L82.1) (see comment) 11:22 AM [facility] DERMATOPATHOLOGY LABORATORY at [address] DOCK SUPERINTENDENT Clinical History R/o SCC, Follicular Tumor, r/o SK 11:22 AM [facility] DERMATOPATHOLOGY LABORATORY Gross Description Specimen A: Received is one formalin filled container labeled with the patient's name and designated right cheek. The specimen consists of a shave biopsy measuring 4x4x1 mm. Jar 0. 11:22 AM [facility] DERMATOPATHOLOGY LABORATORY Microscopic Description Specimen A. SKIN, right cheek: Sections show hyperkeratosis, papillomatosis, hypergranulosis, and acanthosis. These histological findings can be seen in a verruca vulgaris or a seborrheic keratosis. COMMENT: Given the superficial nature of the biopsy specimen, a deeper dermal process cannot be excluded. 11:22 AM [facility] DERMATOPATHOLOGY LABORATORY Disclaimer An external and internal positive and negative controls are appropriate for the histochemical, immunohistochemical and immunofluorescence stain(s) in this case (if any), except where stated explicitly. The performance characteristics of the stain(s) cited in this report were developed and its performance characteristic determined by the Dermatopathology Laboratory at [facility], directed by Dr. Armin Cao. These tests need not be, and therefore are not, approved by the [place] Food and Drug Administration. The tests are used for clinical purposes. Billing Codes Specimen Charges Stain Charges 78056 1 11:22 AM [facility] DERMATOPATHOLOGY LABORATORY Embedded Images 11:22 AM [facility] DERMATOPATHOLOGY LABORATORY Pathology/Cytolo gy TISSUE SPECIMEN FROM SKIN / Unknown 04/26/2023 1:03 PM DOCK SUPERINTENDENT 04/27/2023 12:25 PM [facility] us Rose Mary Arroyo MD LAB - PATHOLOGY/CYTOLOGY ORD ERABLES Final Result DERMATOPATHOLOGY LABORATORY [facility] - Department of Dermatology [address], [address] [phone] documented in this encounter Visit Diagnoses Not on filedocumented in this encounter Care Teams Managing Partner Relationship Specialty Start Date End Date Clifford Cruz MD [address] [place] [address] [address] [place], [place] [address] [address] PCP - General Internal Medicine 12/17/20 documented as of this encounter
--- OUTSIDE RECORDS SUMMARY | 2025-01-01 10:50 | XMS_ITS | Encounter Summary ---
Author Organization [facility] Address [address] [place] [address] Care Team Providers Care Clock Assembler Name Role Phone Clifford Cruz MD Primary Care Provider Encounter Details Date Type Department Care Team (Late st Contact Info) Description 12/07/2023 Lab Requisition [facility] - DermPath Lab [address] [facility] [place] [phone] Rose Mary Arroyo MD [address] [facility] [address] [place] [address] Social History Tobacco Use Types Packs/Day Years Used Date Smoking Tobacco: Never Smokeless Tobacco: Never Comments Unknown Sex and Gender Information Value Date Recorded Sex Assigned at Not on file Legal Sex Female 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 Gender Identity Not on file Sexual Orientation Not on file documented as of this encounter Plan of Treatment Not on file documented as of this encounter Procedures Procedure Name Priority Date/Time Associated Diagnosis Comments DERMATOPATHOLOGY Routine 12/07/2023 9:50 AM CDT documented in this encounter Results * DERMATOPATHOLOGY (12/07/2023 9:50 AM CDT) Case Report Dermatopathology Report Case: [id number] Authorizing Provider: Rose Mary Arroyo MD Collected: 12/07/2023 09:50 AM Ordering Location: [facility] - Received: 12/08/2023 06:16 AM DermPath Lab Pathologist: Wu Cao MD Specimen: Skin, left cheek 6:10 PM CDT DERMATOPATHOLOGY LABORATORY Final Diagnosis Specimen A. 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 The specimen consists of a shave biopsy measuring 9x8x3 mm. Jar 0. 6:10 PM T DERMATOPATHOLOGY LABORATORY Microscopic Description Specimen A. SKIN, left cheek: There is a cup-shaped lesion with central hyperkeratosis with elements of parakeratosis. The epithelial cells making up the mullen of the cup show abundant eosinophilic cytoplasm. There is immaturity of the keratinocytes in the outermost layers of this epithelium. In the dermis there is marked fibroplasia with a mixed inflammatory infiltrate containing eosinophils. Additional deeper sections were obtained and reviewed. 6:10 PM [facility] DERMATOPATHOLOGY LABORATORY Disclaimer An external and internal positive and negative controls are appropriate for the histochemical, immunohistochemical and immunofluorescence stain(s) in this case (if any), except where stated explicitly. The performance characteristics of the stain(s) cited in this report were developed and its performance characteristic determined by the Dermatopathology Laboratory at [facility], directed by Dr. Armin Cao. These tests need not be, and therefore are not, approved by the [place] Food and Drug Administration. The tests are used for clinical purposes. Billing Codes Specimen Charges Stain Charges 41091 1 4 6:10 PM CDT DERMATOPATHOLOGY LABORATORY Embedded Images 4 6:10 PM CDT DERMATOPATHOLOGY LABORATORY Pathology/Cytolo gy TISSUE SPECIMEN FROM SKIN / Unknown 12/07/2023 9:50 AM CDT 12/08/2023 6:16 AM CDT us Rose Mary Arroyo MD LAB - PATHOLOGY/CYTOLOGY ORD ERABLES Final Result DERMATOPATHOLOGY LABORATORY [facility] - Department of Dermatology [facility] [address] [facility], [address] [phone] documented in this encounter Visit Diagnoses Not on filedocumented in this encounter Care Teams Clock Assembler Relationship Specialty Start Date End Date Clifford Cruz MD [address] [place] [address] [address]LL [address] [place] [address] PCP - General Internal Medicine 12/17/20 documented as of this encounter
--- OUTSIDE RECORDS SUMMARY | 2025-01-01 10:50 | XMS_ITS | Encounter Summary ---
Author Organization [facility] Address [address] [place] [address] Care Team Providers Care Change Management Administrator Name Role Phone Clifford Cruz MD Primary Care Provider Encounter Details Date Type Department Care Team (Late st Contact Info) Description 12/13/2019 Lab Requisition [facility] DermPath Lab [address] [facility] [facility] [address] [place] [address] Orestes Almanza MD [address] [address] Social History Tobacco Use Types Packs/Day Years Used Date Smoking Tobacco: Never Assessed Comments Unknown Sex and Gender Information Value Date Recorded Sex Assigned at Not on file Legal 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 Female 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 Gender Identity Not on file Sexual Orientation Not on file documented as of this encounter Plan of Treatment Not on file documented as of this encounter Procedures Procedure Name Priority Date/Time Associated Diagnosis Comments DERMATOPATHOLOGY Routine 12/12/2019 12:0 0 AM CDT documented in this encounter Results * DERMATOPATHOLOGY (12/12/2019 12:00 AM CDT) Case Report Dermatopathology Report Case: [id number] Authorizing Provider: Orestes Almanza MD Collected: 12/12/2019 12:00 AM Ordering Location: [facility] DermPath Lab Received: 12/13/2019 02:58 PM Pathologist: Kimmy Pham MD Specimen: Skin, right lower leg 0 3:13 PM CDT DERMATOPATHOLOGY LABORATORY Final Diagnosis Specimen A. SKIN, right lower leg: HYPERPLASTIC (HYPERTROPHIC) ACTINIC KERATOSIS (L57.0) HEALING SKIN CHANGES (L90.5) STASIS DERMATITIS (L30.8) (see microscopic description) 0 3:13 PM CDT DERMATOPATHOLOGY LABORATORY at 1513 CDT Clinical History DF vs SK vs BCCA. Path # [id number]. 0 3:13 PM CDT DERMATOPATHOLOGY LABORATORY Gross Description Specimen A: Received is one formalin filled container labeled with the patient's name and designated right lower leg. The specimen consists of a shave biopsy measuring [id number]. Jar 0. 0 3:13 PM CDT DERMATOPATHOLOGY LABORATORY Microscopic Description Specimen A. SKIN, right lower leg: There is hyperkeratosis alternating with parakeratosis. There is epidermal hyperplasia with disorderly maturation of keratinocytes with nuclear pleomorphism confined to the lower half of the epidermis. There is adjacent epidermal hyperplasia beneath which there are vascular proliferation, fibroblasts, and an edematous stroma. There is focal spongiosis. The dermis shows a sparse, perivascular lymphocytic infiltrate surrounding dilated, thick-walled vessels, which are increased in number. 0 3:13 PM CDT DERMATOPATHOLOGY LABORATORY Disclaimer An external and internal positive and negative controls are appropriate for the histochemical, immunohistochemical and immunofluorescence stain(s) in this case (if any), except where stated explicitly. The performance characteristics of the stain(s) cited in this report were developed and its performance characteristic determined by the Dermatopathology Laboratory at [facility], directed by Dr. Armin Cao. These tests need not be, and therefore are not, approved by the [place] Food and Drug Administration. The tests are used for clinical purposes. Billing Codes Specimen Charges Stain Charges 87672 1 0 3:13 PM CDT DERMATOPATHOLOGY LABORATORY Embedded Images 0 3:13 PM CDT DERMATOPATHOLOGY LABORATORY Pathology/Cytolog y TISSUE SPECIMEN FROM SKIN / Unknown 12/12/2019 12/13/2019 2:58 PM CDT Orestes Almanza MD LAB - PATHOLOGY/CYTOLOGY ORDER KUSHAL Final Result DERMATOPATHOLOGY LABORATORY [facility] - Department of Dermatology [facility] Specialized Medicine [address] [place] [address], [address] [phone] documented in this encounter Visit Diagnoses Not on filedocumented in this encounter Care Teams Change Management Administrator Relationship Specialty Start Date End Date Clifford Cruz MD [address] [facility] [facility] [address] [place] [address] PCP - General Internal Medicine 12/17/20 documented as of this encounter
--- OUTSIDE RECORDS SUMMARY | 2025-01-01 10:50 | XMS_ITS | Encounter Summary ---
Author Organization [facility] Address [address] [place] [address] Care Team Providers Care Senior Instructor Name Role Phone Clifford Cruz MD Primary Care Provider Encounter Details Date Type Department Care Team (Late st Contact Info) Description 05/08/2024 Lab Requisition [facility] - DermPath Lab [address] [facility] [place] [id number] Rose Mary Arroyo MD [address] [facility] [address] [place] [address] Social History Tobacco Use Types Packs/Day Years Used Date Smoking Tobacco: Never Smokeless Tobacco: Never Comments Unknown Sex and Gender Information Value Date Recorded Sex Assigned at Not on file Legal Sex Female 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 Gender Identity Not on file Sexual Orientation Not on file documented as of this encounter Plan of Treatment Not on file documented as of this encounter Procedures Procedure Name Priority Date/Time Associated Diagnosis Comments DERMATOPATHOLOGY Routine 05/08/2024 1:47 PM CDT documented in this encounter Results * DERMATOPATHOLOGY (05/08/2024 1:47 PM CDT) Case Report Dermatopathology Report Case: [id number] Authorizing Provider: Rose Mary Arroyo MD Collected: 05/08/2024 01:47 PM [facility] - Received: 05/09/2024 01:59 PM DermPath Lab Pathologist: Kimmy Pham MD Specimen: Skin, mid back 2:24 PM CDT DERMATOPATHOLOGY LABORATORY Final Diagnosis Specimen A. SKIN, mid back: EPIDERMOID CYST (L72.0) 2:24 PM CDT DERMATOPATHOLOGY LABORATORY at 1424 CDT Clinical History Cyst 2:24 PM CDT DERMATOPATHOLOGY LABORATORY Gross Description Specimen A: Received is one formalin filled container labeled with the patient's name and designated mid back. The specimen consists of a non-oriented ellipse of skin measuring [id number] mm. The epidermal surface is unremarkable. The margin is inked green. The 12 o'clock and 6 o'clock tips are submitted in cassette 1. The remainder of the ellipse is serially sectioned and submitted in cassette 2-4. Jar 0. 2:24 PM CDT DERMATOPATHOLOGY LABORATORY Microscopic Description Specimen A. SKIN, mid back: Within the dermis, there is a space lined by epithelium that resembles normal epidermis and the infundibular portion of the hair follicle. 2:24 PM CDT DERMATOPATHOLOGY LABORATORY Disclaimer An external and internal positive and negative controls are appropriate for the histochemical, immunohistochemical and immunofluorescence stain(s) in this case (if any), except where stated explicitly. The performance characteristics of the stain(s) cited in this report were developed and its performance characteristic determined by the Dermatopathology Laboratory at [facility], directed by Dr. Armin Cao. These tests need not be, and therefore are not, approved by the [place] Food and Drug Administration. The tests are used for clinical purposes. Billing Codes Specimen Charges Stain Charges 94813 1 2:24 PM CDT DERMATOPATHOLOGY LABORATORY Embedded Images 2:24 PM CDT DERMATOPATHOLOGY LABORATORY Pathology/Cytolo gy TISSUE SPECIMEN FROM SKIN / Unknown 05/08/2024 1:47 PM CDT 05/09/2024 1:59 PM CDT us Rose Mary Arroyo MD LAB - PATHOLOGY/CYTOLOGY ORD ERABLES Final Result DERMATOPATHOLOGY LABORATORY [facility] - Department of Dermatology [address], [address] [phone] documented in this encounter Visit Diagnoses Not on filedocumented in this encounter Care Teams Senior Instructor Relationship Specialty Start Date End Date Clifford Cruz MD [address] [place] [address] DR [address] [place] [address] PCP - General Internal Medicine 12/17/20 documented as of this encounter
--- OUTSIDE RECORDS SUMMARY | 2025-01-01 10:50 | XMS_ITS | Clinical Summary ---
Author Organization [facility] Address [address], [facility] [address] [place] [address] Phone Care Team Providers Care Metal Sprayer Protective Coating Name Role Phone Clifford Cruz MD Primary Care Provider Allergies Active Allergy Reactions Criticality Noted Date Comments Clindamycin Hives 04/18/2018 Cephalexin Rash 05/01/2019 Neomycin-Bacitracin Zn-Polymyx Itching 04/18/2018 Other Rash 04/18/2018 Adhesive tape Penicillins Hives 04/18/2018 Prednisone Other (see Comments) 04/18/2018 depression Topiramate Other (see Comments) 04/18/2018 migraine Medications simvastatin (ZOCOR) 20 MG Tablet Take 40 mg by mouth every evening. Active ALPRAZolam (XANAX) 0.5 MG Tablet 1 mg nightly as needed. 5 9 Active baclofen (LIORESAL) 10 MG Tablet Take 1 Tab by mouth 3 times daily as needed (trigeminal neuralgia). 30 Tab 9 Active Additional Information Patient not taking.Reported on 05/01/2019 Erenumab-aooe (AIMOVIG) 70 MG/ML Solution Auto-injector 70 mg by Subcutaneous route every 28 days. 1 mL 11 9 Active Additional Information Patient not taking.Reported on 04/19/2019 fentaNYL (DURAGESIC) 50 MCG/HR PATCH 72 HR 1 Patch by Transdermal route every 72 hours. Upon removal, safely discard used patch by immediately folding the sticky sides together and flushing patch down the toilet. Active pregabalin (LYRICA) 75 MG Capsule Take 75 mg by mouth 2 times daily. Active Family History Medical History Relation Name Comments Diabetes Maternal Grandfather Diabetes Maternal Grandmother Alcohol Abuse Mother Cancer Mother lung, brain Diabetes Paternal Grandfather Diabetes Paternal Grandmother Relation Name Status Comments Father Maternal Grandfather Maternal Grandmother Mother Paternal Grandfather Paternal Grandmother Social History Tobacco Use Types Packs/Day Years Used Date Smoking Tobacco: Never Smokeless Tobacco: Never Tobacco Cessation:Counseling Given: No Alcohol Use Standard Drinks/Week Comments No 0 (1 standard drink = 0.6 oz pur e alcohol) Comments No Sex and Gender Information Value Date Recorded Sex Assigned at Not on file Legal Sex Female 2:45 PM CABLE SUPERVISOR Gender Identity Not on file Sexual Orientation Not on file Last Filed Vital Signs Vital Sign Reading Time Taken Comments Blood Pressure 155/74 05/01/2019 9:41 AM CDT Pulse 66 05/01/2019 7:46 AM CDT Temperature 36 C (96.8 F) 05/01/2019 9:41 AM CDT Respiratory Rate 17 05/01/2019 9:41 AM CDT Oxygen Saturation 97% 05/01/2019 9:41 AM CDT Inhaled Oxygen Concentration - - Weight 88.9 kg (196 lb) 04/19/2019 1:00 PM CABLE SUPERVISOR Height 160 cm (5' 3) 04/19/2019 1:00 PM CABLE SUPERVISOR Body Mass Index 34.72 04/19/2019 1:00 PM CABLE SUPERVISOR Plan of Treatment Health Maintenance Due Date Last Done Comments Hepatitis C Virus (HCV) Screening 1945 TdaP Immunization 1945 Pneumococcal Immunization (50+ years) (1 of 2 - PCV) 09/21/1962 Medicare Initial AWV G0438 11/23/2003 Respiratory Syncytial Virus (RSV) Immunization (Adult) (1 - 1-dose 75+ series) 09/21/2018 Influenza Immunization (#1) 2024 10/0 09/2018, 11/18/2016, 11/22/2015, Additional history exists SARS-COV-2 Immunization ( season) 2024 10/23/2020, 05/07/2020, 04/16/2020 Zoster Immunization Completed 06/16/2018, 9 Hepatitis B Immunization Aged Out No longer eligible based on patient's age to complete this topic Human Papillomavirus (HPV) Immunization Aged Out No longer eligible based on patient's age to complete this topic Meningococcal Immunization (ACWY) Aged Out No longer eligible based on patient's age to complete this topic Rotavirus Immunization Aged Out No lo nger eligible based on patient's age to complete this topic Medical Devices Implanted Type Area High Density Press Laborer Device Identifier Shelf Expiration Date Model / Serial / Lot Clip 360 Resolution 235cm - [id number] Implanted:Qty: 5 on 05/01/2019 by Dorie Yeager, DO at [facility] IMPLANT [employer] 12/20/2021 [id number] / [id number] / [id number] Clip 360 Resolution 235cm - [id number] Implanted:Qty: 3 on 05/01/2019 by Dorie Yeager, DO at [facility] IMPLANT [employer] 12/31/2021 [id number] / [id number] / [id number] Insurance MEDICARE [facility] Care Teams Metal Sprayer Protective Coating Relationship Specialty Start Date End Date Clifford Cruz MD [address] [facility] [address] [place] [address] PCP - General Internal Medicine 04/05/18
--- OUTSIDE RECORDS SUMMARY | 2025-01-01 10:51 | XMS_ITS | Encounter Summary ---
Author Organization [facility] Healthcare Address [address] [place] [address] Care Team Providers Care Marble Ceiling Installer Name Role Phone Clifford Cruz MD Primary Care Provider Karl Hughes OD Unavailable Unavailable Arnold Bowden MD Unavailable [phone] Reason for Visit * Reason Onset Date Comments Test Results 12/11/2024 Encounter Details Date Type Department Care Team (Late st Contact Info) Description 12/11/2024 Results Follow-Up [facility] Medical Group Primary Care at [address] [place] [address] Clifford Cruz MD [address] [place] [address] [address] [place], [place] [id number] SCREENING MAMMOGRAM BILATERAL W MABLE Social History Tobacco Use Types Packs/Day Years Used Date Smoking Tobacco: Former Cigarettes 1.5 10 1 5 - 1974 Smokeless Tobacco: Never Comments:Smoking History Pac ks/day: 0.5 Packs Alcohol Use Standard Drinks/Week Comments No 0 (1 standard drink = 0.6 oz pur e alcohol) AUDIT-C Answer Date Recorded Q1: How often do you have a drink containing alcohol? Never 06/02/2024 Q2: How many drinks containi ng alcohol do you have on a typical day when you are drinking? Patient does not drink Q3: How often do you have si x or more drinks on one occasion? Never 06/02/2024 PHQ-2 Answer Date Recorded PHQ-2 Total Score (If total score is 3 or more points, staff should administer the PHQ-9) 0 09/04/2024 Personal Safety Answer Date Recorded Have you ever been in or are you currently in a harmful physical or emotional relationship or is someone making you feel afraid or unsafe? 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 Scheduling should contact the pt to schedule. * Result Encounter Note - Cony Tan - 12/12/2024 9:14 AM CDT LM with radiology * Telephone Encounter - Cathleen Sun MA - 12/12/2024 8:03 AM CDT I called and spoke with patient and informed her of results, routing to referrals. documented in this encounter Plan of Treatment Not on file documented as of this encounter Visit Diagnoses Not on filedocumented in this encounter Care Teams Marble Ceiling Installer Relationship Specialty Start Date End Date Clifford Cruz MD PCP - General 05/22/16 Karl Hughes OD Referring Physician Optometry 11/23/23 Arnold Bowden MD [address] [place] [address] [place] [address] Primary Eye Care Provider Ophthalmology 11/23/23 documented as of this encounter
--- OUTSIDE RECORDS SUMMARY | 2025-01-01 10:51 | XMS_ITS | Encounter Summary ---
Author Organization [facility] Healthcare Address [address] [place] [address] Care Team Providers Care Art Preparator Name Role Phone Clifford Cruz MD Primary Care Provider Karl Hughes OD Unavailable Unavailable Arnold Bowden MD Unavailable [phone] Reason for Visit * Reason Onset Date Comments Test Results 12/21/2024 Encounter Details Date Type Department Care Team (Late st Contact Info) Description 12/21/2024 Results Follow-Up [facility] Medical Group Primary Care at [address] [place] [address] Clifford Cruz MD [address] [place] [address] [address] [place], [place] [id number] Diagnostic Mammogram Left W Lul Social History Tobacco Use Types Packs/Day Years [...] on file Legal Sex Female 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 KET WASHER * Telephone Encounter - Cathleen Sun MA - 12/22/2024 8:12 AM CDT Patient aware of results, will go ahead and route to referrals, documented in this encounter Plan of Treatment Not on file documented as of this encounter Visit Diagnoses Not on filedocumented in this encounter Care Teams Art Preparator Relationship Specialty Start Date End Date Clifford Cruz MD PCP - General 05/22/16 Karl Hughes OD Referring Physician Optometry 11/23/23 Arnold Bowden MD [address] [place] [address] [place] [address] Primary Eye Care Provider Ophthalmology 11/23/23 documented as of this encounter
--- OUTSIDE RECORDS SUMMARY | 2025-01-01 10:51 | XMS_ITS | Encounter Summary ---
Author Organization [facility] Address [address] [place] [address] Phone Care Team Providers Care Grand Scribe Name Role Phone Clifford Cruz MD Primary Care Provider Karl Hughes OD Unavailable Unavailable Arnold Bowden MD Unavailable [phone] Encounter Details Date Type Department Care Team (Late st Contact Info) Description 01/27/2017 Orders Only [facility] ProviderTheresa MD [address] [place] [address] Social History Tobacco Use Types Packs/Day Years Used Date Smoking Tobacco: Former Smokeless Tobacco: Never Comments:Smoking History Pac ks/day: 0.5 Packs Alcohol Use Standard Drinks/Week Comments No 0 (1 standard drink = 0.6 oz pur e alcohol) Comments Unknown Sex and Gender Information Value Date Recorded Sex Assigned at Not on file Legal Sex Female 10:05 AM TAPE EDITOR Gender Identity Female 02/06/2021 7:26 PM TAPE EDITOR Sexual Orientation Not on file documented as of this encounter Functional Status * In the past year, patient experienced: Question Answer Date of Assessment Author One or more falls in the last year No 2016 9:56 AM TAPE EDITOR Jacy Damon * BP Location Answer Date of Assessment Author Right arm 01/27/2017 10:00 AM TAPE EDITOR Damon Jacy L. * BP Location Answer Date of Assessment Author Right arm 01/27/2017 10:00 AM TAPE EDITOR Nelson Jacy Janae. documented as of this encounter Plan of Treatment Not on file documented as of this encounter Procedures Procedure Name Priority Date/Time Associated Diagnosis Comments DISCHARGE LABORATORY CUMULATIVE REPORT 01/27/2017 12:00 AM TAPE EDITOR documented in this encounter Results * DISCHARGE LABORATORY CUMULATIVE REPORT (01/27/2017 12:00 AM TAPE EDITOR) Narrative 01/27/2017 12:00 AM TAPE EDITOR Ordered by an unspecified provider. us Historical Provider LAB BLOOD ORDERABLES Berna l Result documented in this encounter Visit Diagnoses Not on filedocumented in this encounter Care Teams Grand Scribe Relationship Specialty Start Date End Date Clifford Cruz MD PCP - General 05/22/16 Karl Hughes OD Referring Physician Optometry 11/23/23 Arnold Bowden MD [address] [place] [address] [place] [address] Primary Eye Care Provider Ophthalmology 11/23/23 documented as of this encounter
--- OUTSIDE RECORDS SUMMARY | 2025-01-01 10:51 | XMS_ITS | Encounter Summary ---
Author Organization [facility] Healthcare Address [address] [place] [address] Care Team Providers Care Compliance Engineer Products Name Role Phone Clifford Cruz MD Primary Care Provider Karl Hughes OD Unavailable Unavailable Arnold Bowden MD Unavailable [phone] Encounter Details Date Type Department Care Team (Late st Contact Info) Description 12/12/2024 Telephone [facility] Medical Group Primary Care at [address] [place] [address] Clifford Cruz MD [address] [place] [address] [address] [place] [address] Social History Tobacco Use Types Packs/Day Years Used Date Smoking Tobacco: Former Cigarettes 1.5 10 1 965 - 1975 Smokeless Tobacco: Never Comments:Smoking History Pac ks/day: [...] on file Legal Sex Female 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 The patient needs: Lt diagnostic mammogram and Lt breast ultrasound limited. DX: abnormal mammogram /Rebeca will be able to see in [facility]. documented in this encounter Plan of Treatment Not on file documented as of this encounter Visit Diagnoses Not on filedocumented in this encounter Care Teams Compliance Engineer Products Relationship Specialty Start Date End Date Clifford Cruz MD PCP - General 05/22/16 Karl Hughes OD Referring Physician Optometry 11/23/23 Arnold Bowden MD [address] [place] [address] [place] [address] Primary Eye Care Provider Ophthalmology 11/23/23 documented as of this encounter
--- OUTSIDE RECORDS SUMMARY | 2025-01-01 10:51 | XMS_ITS | Clinical Summary ---
Author Organization [facility] Address [address] [place] [address] Care Team Providers Care Media Operator Name Role Phone Clifford Cruz MD Primary Care Provider Karl Hughes OD Unavailable Unavailable Arnold Bwoden MD Unavailable [phone] Allergies Active Allergy Reactions Criticality Noted Date Comments Adhesive Tape-Silicones Other (See comments),Rash Reaction: Itching, , , Reaction: Rash, Bacitracin Rash,Blisters Reaction: rash, blisters, , Reaction: rash, blisters, Carbamazepine Other (See comments) Low Reaction: felt slow with speech, headaches Clindamycin Hives Medium Reaction: hives, rash, Iodinated Contrast Media Hives,Itching Medium 05/17/19 22 Dibucaine Other (See comments) Low Reaction: skin irritation, pain, burning, Cephalexin Rash Medium 01/27/2017 Rash and itching. Neomycin Rash,Blisters Reaction: rash, blisters, Iusweagz-Etazibhohm-Qrjp myxin Other Rash Medium 04/18/2018 Adhesive tape Penicillins Other (See comments) Reaction: Other, , , Polymyxin B Rash,Blisters High Reaction: rash, blisters, Prednisone Mental status changes Low Sertraline Mental status changes Low Topiramate Headache Low Venlafaxine Hives Medium Reaction: Hives, , , Medications pimecrolimus (ELIDEL) 1 % cream Apply topically 2 (two) times a day 12/17/19 21 Active docusate sodium (COLACE) 100 mg capsuleIndicat ions:constipat ion Take 2 capsules (200 mg total) by mouth 2 (two) times a day 120 capsule 3 05/17/19 22 Active doxycycline (DORYX) 100 mg EC tablet Take 1 tablet (100 mg total) by mouth daily Active omeprazole (PriLOSEC) 40 mg capsule Take 1 Capsule (40 mg) by mouth daily. 90 capsule 3 04/25/19 25 Active cyclobenzaprin e (FLEXERIL) 10 mg tablet Take 1 tablet (10 mg total) by mouth 2 (two) times a day as needed for muscle spasms 20 tablet 05/29/19 25 Active aspirin 81 mg enteric coated tabletIndicati ons:Ischemic vascular disease Take 1 tablet (81 mg total) by mouth daily 06/03/19 25 026 Active ALPRAZolam (XANAX) 0.5 mg tablet Take 1 Tablet (0.5 mg) by mouth 3 times daily as needed for anxiety. 90 tablet 5 09/06/19 25 Active simvastatin (ZOCOR) 20 mg tablet TAKE ONE TABLET BY MOUTH ONCE DAILY IN THE EVENING 90 tablet 10/21/19 25 Active furosemide (LASIX) 40 mg tablet Take 1 Tablet (40 mg) by mouth daily. 90 tablet 10/21/19 25 Active amLODIPine (NORVASC) 5 mg tablet TAKE ONE TABLET BY MOUTH ONCE DAILY 100 tablet 1 10/21/19 25 Active HYDROcodone-ac etaminophen (NORCO) 5-325 mg per tablet Take 1 tablet by mouth every 6 (six) hours as needed for pain 28 tablet 12/19/19 25 Active HYDROcodone-ac etaminophen (NORCO) 5-325 mg per tablet Take 1 tablet by mouth every 6 (six) hours as needed for pain 28 tablet 11/14/19 25 025 Discontinued Active Problems Problem Noted Date Diagnosed Date Severe obesity 09/04/2024 Assessment & Plan (09/04/2024 5:49 PM CDT): CKD (chronic kidney disease) stage 2, GFR 60-89 ml/min 05/28/2022 Assessment & Plan (09/04/2024 5:49 PM CDT): 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 I had a long discussion with the patient as majority of her pain occurs at night while resting and with ambulation. Reports she is supposed to have a total knee, I believe majority if not all of her symptoms are related to musculoskeletal etiology and not her varicosity. Can follow up with me as needed. Assessment & Plan (01/20/2021 2:29 PM CUTTER INSPECTOR): Patient has been small minimal asymptomatic varicose [...] that would preclude left total knee replacement. Absent kidney, acquired 09/20/2019 Assessment & Plan (09/04/2024 5:49 PM CDT): Atypical chest pain 08/02/2019 Assessment & Plan (08/02/2019 1:31 PM CDT): Intermittent with no aggravating factors Class 2 obesity with body ma ss index (BMI) of 35.0 to 35.9 in adult 04/13/2019 Assessment & Plan (04/13/2019 4:49 PM CUTTER INSPECTOR): Benefits of weight loss discussed. Reviewed recommendations for daily intake & activity 20-30 minutes/day. She was counseled on the importance of maintaining a healthy weight and the risks of obesity. Weight loss recommended. I have recommended beginning daily aerobic activity. Patient was encouraged to start at a comfortable pace and distance and increase as tolerated. I encouraged decrease caloric restriction in order to promote weight loss. I recommended calorie tracking dani, my fitness Pal, which is a free download on a smart phone. Sleep apnea 02/23/2019 Assessment & Plan (09/04/2024 5:49 PM CDT): Lumbar radiculopathy 12/30/2018 Assessment & Plan (09/04/2024 5:49 PM CDT): Frequency of urination 01/27/2017 Assessment & Plan (01/27/2017 1:06 PM CUTTER INSPECTOR): Urine specimen will be submitted to the lab for urinalysis with reflex to microscopy and culture. Multiple-type hyperlipidemia 12/02/2015 Overview (05/29/2016): MIXED HYPERLIPIDEMIA Assessment & Plan (09/04/2024 5:49 PM CDT): Orders: Comprehensive metabolic panel; Future Lipid panel; Future Assessment & Plan (01/17/2024 1:34 PM CUTTER INSPECTOR): Stable continue simvastatin Assessment & Plan (01/20/2021 2:27 PM CUTTER INSPECTOR): Hyperlipidemia chronic and controlled. Continue Zocor. Essential hypertension 08/02/2015 Overview (05/29/2016): Essential hypertension Assessment & Plan (09/04/2024 5:49 PM CDT): Orders: Comprehensive metabolic panel; Future Lipid panel; Future Assessment & Plan (01/17/2024 1:34 PM CUTTER INSPECTOR): Stable continue amlodipine Assessment & Plan (01/20/2021 2:28 PM CUTTER INSPECTOR): Essential hypertension chronic. Also controlled. Continue current medical therapy Assessment & Plan (08/02/2019 1:31 PM CDT): Well controlled Obesity with body mass index 30 or greater 08/01 Overview (05/29/2016): Obesity (BMI 30-39.9) Migraine 09/05/2013 Overview (05/29/2016): MIGRNE UNSP WO NTRC MGRN Menopausal syndrome 07/08/2013 Overview (05/27/2016): MENOPAUSAL DISORDER NEC Gastroesophageal reflux disease 07/08/2013 Overview (05/28/2016): ESOPHAGEAL REFLUX Assessment & Plan (09/04/2024 5:49 PM CDT): Impaired glucose tolerance 11/11/2012 Overview (05/29/2016): Glucose intolerance (impaired glucose tolerance) Assessment & Plan (09/04/2024 5:49 PM CDT): Orders: Comprehensive metabolic panel; Future Chronic migraine with aura Trigeminal neuralgia Resolved Problems Problem Noted Date Diagnosed Date Resolved Date Diastolic heart failure 08/02/201902/22 Assessment & Plan (08/02/2019 1:32 PM CDT): Compensated at this time Right lower quadrant abdominal pain 04/13/2019 09/20/2019 Assessment & Plan (04/13/2019 4:49 PM CUTTER INSPECTOR): Pain has been ongoing for approximately 2 minutes very unlikely this is related to acute appendicitis however patient is quite concerned will check CT abdomen without contrast due to patient's allergy to iodine as well as patient only having 1 kidney. Will order as stat CT and discussed results with patient once received. Addendum: CT negative for acute appendicitis or any other acute changes. Noted right renal cyst which had been present on previous CT. Explained patient that I do not have a answer for her abdominal pain however if it continues we could consider an ultrasound or MRI for further evaluation. In addition I did explain to patient she is due for colonoscopy and would recommend this if continued pain is present as always concerns for malignancies. Patient declined colonoscopy at this time. Patient verbalized understanding states she will notify office with absolutely any changes. Denies any questions or concerns at this time. Cat bite 01/27/2017 12/27/2017 Assessment & Plan (01/27/2017 1:06 PM CUTTER INSPECTOR): Site of cat bite has completely healed. No tenderness or erythema. No signs or symptoms of secondary infection. Copious reassurance was provided to the patient. Pruritus 01/27/2017 09/20/2019 Assessment & Plan (01/27/2017 1:07 PM CUTTER INSPECTOR): Onset of symptoms correlates with cephalosporin. Patient has a history of penicillin allergy. She will refrain from further use of cephalosporin. She may continue Pepcid and ctwl-knz-[id number] antihistamines as needed. She has been instructed to contact the office with any change in, worsening, or non improvement of her condition. Copious reassurance was provided to this patient as her physical exam findings are not consistent with scabies. Acute vaginitis 08/10/2016 09/20/2019 Assessment & Plan (08/10/2016 3:24 PM CDT): Patient is already noted improvement with topical remedies. A culture was obtained and submitted to the lab. We will refill her topical lotion. She will contact the office with absolutely any change in worsening or non improvement of condition. She should anticipate a cough for me regarding culture results. She is to contact the office if she has not heard from me within 3 days of having testing completed. She offered no further complaints and was in agreement with the plan of care. Left ventricular diastolic dysfunction 08/02/2015 03/07/2024 Overview (05/29/2016): Diastolic dysfunction, left ventricle Dyspnea on exertion 08/02/2015 09/20/19 Overview (05/29/2016): CARDOZA (dyspnea on exertion) Assessment & Plan (08/02/2019 1:32 PM CDT): Could be caused from deconditioning Chronic renal impairment 07/08/201303/2019 Overview (05/29/2016): CHRONIC KIDNEY DIS NOS Paresthesia 04/13/2012 09/20/2019 Overview (05/28/2016): Paresthesia Encounters Date Type Department Care Team Description 12/25/2024 Orders Only [facility] Primary Care at [address] [phone] Clifford Cruz MD 12/21/2024 Results Follow-Up [facility] Primary Care at [address] [phone] Clifford Cruz MD Diagnostic Mammogram Left W Lul 12/20/2024 1:19 PM CDT - 12/20/2024 11:59 PM CDT Hospital Encounter [facility] Medical [facility] [address] [facility] [address] [place] [id number] Abnormal mammogram Discharge Disposition: Discharge to home or self care 12/12/2024 Orders Only [facility] Primary Care at [address] [phone] Clifford Cruz MD Abnormal mammogram (Primary Dx) 12/12/2024 Telephone [facility] Medical [facility] Primary Care at [address] [phone] Clifford Cruz MD 12/11/2024 Results Follow-Up [facility] Primary Care at [address] [phone] Clifford Cruz MD SCREENING MAMMOGRAM BILATERAL W LUL 12/06/2024 10:31 AM CDT - 12/06/2024 11:59 PM CDT Hospital Encounter [address] [address] Visit for screening mammogram Discharge Disposition: Discharge to home or self care from Last 3 Months Immunizations Immunization Administration Dates Next Due Influenza, Quadrivalent, Hig h Dose, Preservative Free, Intrr 11/13/2021,12/05/2019 Influenza, Split 10/31/2010,11/20/2009 Influenza, Trivalent, High D ose, Split, Preservative Free, Intramuscular 12/01/2022,11/23/2018,11/16/2017,11/18,11/22/2015,11/09/2014,11/21/2013 ,11/11/2012 Influenza, Trivalent, IM (MDV) 11/26/2014,2008 Influenza, Unspecified 03/07/2024(Deferr ed: Patient Refused),11/15/2020,12/06/2019, 019 Pfizer SARS-CoV-2 Monovalent Vaccination (12+ Yrs) PURPLE 05/07/2020,04/16/2020 Pfizer Sars-Cov-2 Bivalent V accination (12+ YRS) 12/03/2022 Pneumococcal Conjugate PCV 13 06/10/2015 Pneumococcal Polysaccharide PPV23 02/02/2012 Td, adsorbed 12/25/2004 Tdap 06/10/2015 ZOSTER LIVE 10/23/2006 ZOSTER Recombinant 06/16/2018,04/09/2018 Surgical History Surgery Date Site/Laterality Comments HYSTERECTOMY 02/22/1985 - 02/21/1986 Hysterectomy OTHER SURGICAL HISTORY 02/23/1996 - 02/21/1997 achilles tendonitis: repaired-2 screws OTHER SURGICAL HISTORY 02/22/1985 - 02/21/1986 stage 3 renal failure: lost kidney during hysterectomy HYSTERECTOMY Hysterectomy CHOLECYSTECTOMY Cholecystectomy OTHER SURGICAL HISTORY achilles tendon repair. 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 Hx Other Medical Ureter severed during hysterectomy Hx Other Medical cataract surger y Hx Other Medical R cataract Hx Other Medical L cataract Depression Migraines Gastric reflux Allergic rhinitis Kidney problem Recurrent UTI TIA (transient ischemic attack) Congestive heart disease Diastolic CHF due to valvula r disease (HCC) Trigeminal neuralgia Migraine GERD (gastroesophageal reflux disease) 5 years a go Anxiety Arthritis Heart disease Sleep apnea Family History Medical History Relation Name Comments Alcohol abuse Brother Bryson COPD Brother Bryson Diabetes type II Brother Bryson Diabetes me llitus type 2; Heart failure Brother Bryson Congestive hea rt failure; Cause of : Congestive heart failure Depression Daughter Cathleen Obesity Daughter Cathleen Obesity; Obesity Father Stuart Massey Other Father Stuart Massey Accidental over dose (NSAID), GI bleed; Cause of : Accidental overdose (NSAID), GI bleed Diabetes Maternal Grandfather Simba Alcohol abuse Mother Renita Cancer Mother Renita Depression Mother Renita Depression; Obesity Mother Renita Other Mother Renita Lung w/ brain m ets; Cause of : Lung w/ brain mets Arthritis Other Diabetes Paternal Grandmother Inez Alcohol abuse Sister Waleska Alcoholism; pe rsonality disorder. estranged from family - may be . Depression Sister Waleska Mental illness Sister Waleska Relation Name Status Comments Brothsherry Massye (Age 65) Daughter Cathleen Father Stuart Massey (Age 78) Maternal Grandfather Simba Mother Renita (Age 72) Other Paternal Grandmother Inez Galeano Social History Tobacco Use Types Packs/Day Years Used Date Smoking Tobacco: Former Cigarettes 1.5 10 1 1974 Smokeless Tobacco: Never Comments:Smoking History Pac [...] on file Legal Sex Female 10:05 AM CUTTER INSPECTOR Gender Identity Female 02/06/2021 7:26 PM CUTTER INSPECTOR Sexual Orientation Not on file Obstetrics History Para Term AB IAB SAB Ectopic Multiple Livin g Live Births 1 1 Date Outcome GA Total Labor Labor/2nd/3rd Weight Sex Type Anes PTL Martha A1 A5 Name Clin Last Filed Vital Signs Vital Sign Reading Time Taken Comments Blood Pressure 118/80 09/04/2024 12:57 PM CDT Pulse 57 09/04/2024 12:57 PM CDT Temperature 36.4 C (97.6 F) 09/04/2024 12:57 PM CDT Respiratory Rate 16 09/04/2024 12:5 7 PM CDT Oxygen Saturation 97% 09/04/2024 12: 57 PM CDT Inhaled Oxygen Concentration - - Weight 91.6 kg (201 lb 15.1 oz) 025 10:34 AM CDT Height 157.5 cm (5' 2.01) 12/06/2024 1 0:34 AM CDT Body Mass Index 36.93 12/06/2024 10:34 AM CDT Plan of Treatment Health Maintenance Due Date Last Done Comments Hepatitis B Screening 09[birth year]21/1963 Osteoporosis Screening-Bone Density Scan 11/19/2012 11/19/2010, 11/19/2010 Colon Cancer Screening-Colonoscopy 09/04/2023 09/03/2020, 05/01/2019, 05/01/2019, Additional history exists Covid-19 Vaccine (2024- 6 season) 2024 12/03/2022, 10/23/2020, 05/07/2020, Additional history exists Influenza Vaccine (#1) 2024 , 11/13/2021, 11/15/2020, Additional history exists Well Visit 65+ 03/07/2025 03/07/2024, 09/2023, 11/03/2022, Additional history exists DTaP/Tdap/Td Vaccine (2 - Td or Tdap) 06/09/2025 06/10/2015, 12/25/2004 Depression Screening 09/04/2025 09/04/2024, 06/02/2024, 03/07/2024, Additional history exists Fall Risk Assessment 09/04/2025 09/04/2024, 06/02/2024, 03/07/2024, Additional history exists Breast Cancer Screening-Mammogram 12/06/2025 12/06/2024, 12/06/2023, 12/03/2022, Additional history exists Pneumococcal vaccine 65+ Completed 06/10/2015, 01/22 Zoster Vaccine Completed 06/16/2018, 03/25, 10/23/2006 Procedures Procedure Name Priority Date/Time Associated Diagnosis Comments DIAGNOSTIC MAMMOGRAM LEFT W LUL Schedule Routine, Read Routine (OP Routine) 12/20/2024 2:10 PM CDT Abnormal mammogram SCREENING MAMMOGRAM BILATERAL W LUL Schedule Routine, Read Routine (OP Routine) 12/06/2024 10:53 AM CDT Visit for screening mammogram COLONOSCOPY Routine 09/03/2020 HM DEXA SCAN Routine 11/19/2010 from Last 3 Months or Most Recently Relevant to Health Maintenance Results * Diagnostic Mammogram Left W Lul (12/20/2024 2:10 PM CDT) Anatomical Region Laterality Modality Breast Left Mammography 12/20/2024 2:37 PM CDT Impressions 12/20/2024 2:37 PM CDT Multiple calcifications of the left breast, slightly increased in size. OVERALL FINAL ASSESSMENT: BI-RADS Category 3: Probably Benign. RECOMMENDATION: Recommend follow-up diagnostic breast imaging in 6 months. Electronically signed by: Elvis Mathews 12/20/2024 2:37 PM CDT EXAMINATION: LEFT UNILATERAL DIGITAL DIAGNOSTIC MAMMOGRAM AND DIGITAL BREAST TOMOSYNTHESIS HISTORY: Patient is 79-year-old female who is presenting for a diagnostic mammogram secondary to increased number of calcifications, she'll be evaluated with a diagnostic mammogram COMPARISON: Bilateral mammogram from 12/06/2024, 12/06/2023, 12/03/2022. TECHNIQUE: Full field digital mammographic views of the LEFT breast were performed, including computer aided detection (CAD) and digital breast tomosynthesis (DBT). BREAST PARENCHYMAL COMPOSITION: There are scattered areas of fibroglandular density. MAMMOGRAM FINDINGS: Within the left upper outer and central breast are multiple calcifications, there are vascular calcifications, secretory calcifications coarse benign calcification but also punctate and dysmorphic calcifications. There is one group of somewhat pleomorphic calcifications in clusters which is seen within the central breast, 12.5 cm from the nipple and on MLO view, there are 11 cm within the upper outer breast, essentially at 1 o'clock position. No masses, asymmetric densities or architectural distortions are identified. Clifford Cruz MD IMG MAMMO PROCEDURES Fi nal Result * (ABNORMAL) SCREENING MAMMOGRAM BILATERAL W LUL (12/06/2024 10:53 AM CDT) Anatomical Region Laterality Modality Breast Bilateral Mammography Impressions 12/11/2024 8:37 AM CDT Left 1) Calcifications: Left breast calcifications in the upper outer quadrant in the middle depth. Right No evidence of malignancy. OVERALL BI-RADS FINAL ASSESSMENT: 0 - Incomplete: Needs Additional Imaging Evaluation RECOMMENDATIONS: Recommend left breast diagnostic mammogram with possible ultrasound. Narrative 12/11/2024 8:37 AM CDT EXAMINATION: SCREENING MAMMOGRAM BILATERAL W LUL: 12/06/2024 COMPARISON: Relevant prior studies available at the time of interpretation were reviewed, including the most recent mammogram on: 12/06/2023. TECHNIQUE: Mammography was performed with 2D and digital breast tomosynthesis (DBT) images. CAD was utilized. BREAST PARENCHYMAL COMPOSITION: There are scattered areas of fibroglandular density. FINDINGS: Left 1) Calcifications: There are calcifications seen in the upper outer quadrant of the left breast in the middle depth. Compared to the previous study, the calcifications increased in number. Right There is no suspicious mass, calcification, or architectural distortion. us Clifford Cruz MD IMG MAMMO PROCEDURES Fi nal Result * Colonoscopy (09/03/2020) Anatomical Region Laterality Modality Other 09/03/2020 Impressions 09/06/2023 2:55 PM CDT Next Colonoscopy in 3 years. Generic External Data Provider ENDOSCOPY PROCEDU RES Final Result * DEXA SCAN (11/19/2010) DEXA Scan Unknown Historical Provider HEALTH MAINTENANCE Final Result from Last 3 Months or Most Recently Relevant to Health Maintenance Insurance [facility] [employer] CHOICE PPO [facility] OTHER Address: [address] [place] [address] [employer] MEDICARE ADVANTAGE Advance Directives For more information, please contact: [phone] * Full Code (Latest Code Status on File) Date Activated Date Inactivated Comments 05/29/2021 3:50 PM 05/30/2021 2:56 PM * Full Code Date Activated Date Inactivated Comments 05/14/2021 10:01 AM 05/16/2021 1:47 PM Care Teams Media Operator Relationship Specialty Start Date End Date Clifford Cruz MD PCP - General 05/22/16 Karl Hughes OD Referring Physician Optometry 11/23/23 Arnold Bowden MD [address] [place] [address] [place] [address] Primary Eye Care Provider Ophthalmology 11/23/23
--- OUTSIDE RECORDS SUMMARY | 2025-01-01 10:51 | XMS_ITS | Clinical Summary ---
Author Organization [facility] Address [address] Attn: Epic Prelude ADT [place] [address] Care Team Providers Care Occasional Babysitter Name Role Phone Unavailable Primary Care Provider Unavailabl e Allergies Active Allergy Reactions Criticality Noted Date Comments Bacitracin Unknown 07/06/2021 Carbamazepine Unknown 07/06/2021 Cephalexin Unknown 07/06/2021 Ciprofloxacin Unknown 07/06/2021 Clindamycin Unknown 07/06/2021 Efmtulch-Egjmsbacht-Hsfhmpjrx Unknown 2021 Penicillins Unknown 07/06/2021 Phentermine Headache Low 08/30/2023 Polymyxin B Sulf,Micron.(Bulk) Unknown 07/06 Prednisone Unknown 07/06/2021 Sertraline Unknown 07/06/2021 Topiramate Unknown 07/06/2021 Venlafaxine Unknown 07/06/2021 Medications doxycycline monohydrate 50 mg Tablet Take 1 tablet by mouth once daily. 90 Tablet 3 10/27/2022 12:13 PM CDT 2 Active pimecrolimus (ELIDEL) 1 % Cream Apply to face twice daily 100 Gram 11 2 Active tobramycin-dexA METHasone (Tobradex) 0.3-0.1 % suspension Administer one drop in both eyes ONCE DAILY NEEDED. 5 mL 2 11/19/2021 3:11 PM CDT 2 Active doxycycline hyclate (VIBRAMYCIN) 100 mg capsule Take 1 capsule (100 mg total) by mouth 2 (two) times a day for 10 days 20 Capsule 07/03/2022 11:10 AM CDT 3 Active naloxone (NARCAN) 4 mg/spray Dike, Non-Aerosol Administer 1 spray into affected nostril(s) as needed for opioid reversal or respiratory depression Call 911. Administer a single spray in one nostril. Repeat every 3 minutes as needed if no or minimal response. 1 Each 3 Active fluconazole (DIFLUCAN) 150 mg tablet Take 1 tablet (150 mg total) by mouth once for 1 dose now. Repeat in 7 days if symptoms persist. 2 Tablet 11/26/2022 4:01 PM CDT 3 Active pimecrolimus (Elidel) 1 % Cream Apply to face 2 times daily 100 Gram 11 02/18/2024 2:21 PM VICE PRESIDENT QUALITY 4 Active HYDROcodone-gabino taminophen (NORCO) 5-325 mg tablet Take 1 tablet by mouth every 6 (six) hours as needed for pain 28 Tablet 07/01/2023 3:41 PM CDT 4 Active roflumilast (Zoryve) 0.3 % Foam Apply to scalp once daily. 60 Gram 5 4 Active triamcinolone acetonide (KENALOG) 0.1 % Cream Apply a small amount to affected skin two times daily for 7 days. 30 Gram 02/10/2024 10:50 AM VICE PRESIDENT QUALITY 4 Active omeprazole (PriLOSEC) 40 mg Capsule, Delayed Release(E.C.) Take 1 Capsule (40 mg) by mouth daily. 90 Capsule 3 10/26/2024 10:51 AM CDT 5 Active doxycycline hyclate (VIBRAMYCIN) 100 mg tablet Take 1 Tablet (100 mg) by mouth daily. 30 Tablet 11 10/26/2024 10:51 AM CDT 5 Active cyclobenzaprine (FLEXERIL) 10 mg tablet Take 1 tablet (10 mg total) by mouth 2 (two) times a day as needed for muscle spasms 20 Tablet 05/30/2024 11:55 AM CDT 5 Active HYDROcodone-gabino taminophen (NORCO) 5-325 mg tablet Take 1 tablet by mouth every 6 (six) hours as needed for pain for up to 10 doses 10 Tablet 05/30/2024 11:55 AM CDT 5 Active ALPRAZolam (XANAX) 0.5 mg tablet Take 1 Tablet (0.5 mg) by mouth 3 times daily as needed for anxiety. 90 Tablet 5 12/19/2024 11:32 AM CDT 5 Active simvastatin (ZOCOR) 20 mg tablet TAKE ONE TABLET BY MOUTH ONCE DAILY IN THE EVENING 90 Tablet 10/26/2024 10:51 AM CDT 5 Active furosemide (LASIX) 40 mg tablet Take 1 Tablet (40 mg) by mouth daily. 90 Tablet 10/26/2024 10:51 AM CDT 5 Active amLODIPine (NORVASC) 5 mg tablet TAKE ONE TABLET BY MOUTH ONCE DAILY 100 Tablet 1 10/26/2024 10:51 AM CDT 5 Active HYDROcodone-gabino taminophen (NORCO) 5-325 mg tablet Take 1 Tablet by mouth every 6 hours as needed. 28 Tablet 12/19/2024 11:32 AM CDT 5 Active HYDROcodone-gabino taminophen (NORCO) 5-325 mg tablet Take 1 Tablet by mouth every 6 hours as needed for pain. 28 Tablet 11/14/2024 11:42 AM CDT 5 025 Discontin ued(Reord er) Encounters Date Type Department Care Team Description 12/19/2024 External Device Data [facility] ABSTRACTION Provider, Abstract from Last 3 Months Immunizations Immunization Administration Dates Next Due (COMRINATY)(12YR UP) COVID-1 9 VACCINE, MRNA (PF)30 MCG/0.3 ML, IM SYRINGE 12/03/2022 INFLUENZA VACCINE HIGH DOSE QUADRIVALENT 65 YR UP PF IM 12/01/2022,11/13/2021 Social History Tobacco Use Types Packs/Day Years Used Date Smoking Tobacco: Never Assessed Comments Unknown Sex and Gender Information Value Date Recorded Sex Assigned at Not on file Legal Sex Female 3:27 PM CDT Gender Identity Not on file Sexual Orientation Not on file Plan of Treatment Health Maintenance Due Date Last Done Comments DTAP/TDAP/TD VACCINES (1 - Tdap) 09/21/1962 PNEUMOCOCCAL VACCINE 50+ YEA RS (1 of 1 - PCV) 09/21/1993 ZOSTER VACCINE (1 of 2) 09/21/1993 OSTEOPOROSIS SCREENING 09/21/2008 RSV VACCINE (60+ or ) (1 - 1-dose 75+ series) 09/21/2018 INFLUENZA VACCINE (#1) 2024 12/01/2022, 2021 COVID-19 Vaccine ( season) 10/23/202401/2023 Insurance RX [employer] (INTERNAL) [facility] RX [employer] RX Member Subscriber Plan / Payer (Ef fective for All Dates) Name:Summer Arellano Relation to Subscriber:Self Name:Summer Arellano Payer ID:Not on file Group ID:[id number] Type:RX Medicare Part D Address: [place]
--- OUTSIDE RECORDS SUMMARY | 2025-01-01 10:51 | XMS_ITS | Encounter Summary ---
Author Organization [facility] Address [address] [place] [address] Phone Care Team Providers Care Dumper Operator Name Role Phone Clifford Cruz MD Primary Care Provider Karl Hughes OD Unavailable Unavailable Arnold Bowden MD Unavailable [phone] Encounter Details Date Type Department Care Team (Late st Contact Info) Description 06/10/2017 Orders Only [facility] ProviderTheresa MD [address] [place] [address] Social History Tobacco Use Types Packs/Day Years Used Date Smoking Tobacco: Former Smokeless Tobacco: Never Comments:Smoking History Pac ks/day: 0.5 Packs Alcohol Use Standard Drinks/Week Comments No 0 (1 standard drink = 0.6 oz pur e alcohol) Comments Unknown Sex and Gender Information Value Date Recorded Sex Assigned at Not on file Legal Sex Female 10:05 AM ANIMAL BIOLOGIST Gender Identity Female 02/06/2021 7:26 PM ANIMAL BIOLOGIST Sexual Orientation Not on file documented as of this encounter Plan of Treatment Not on file documented as of this encounter Procedures Procedure Name Priority Date/Time Associated Diagnosis Comments DISCHARGE LABORATORY CUMULATIVE REPORT 06/10/2017 12:00 AM CDT documented in this encounter Results * DISCHARGE LABORATORY CUMULATIVE REPORT (06/10/2017 12:00 AM CDT) Narrative 06/10/2017 12:00 AM CDT Ordered by an unspecified provider. us Historical Provider LAB BLOOD ORDERABLES Berna l Result documented in this encounter Visit Diagnoses Not on filedocumented in this encounter Care Teams Dumper Operator Relationship Specialty Start Date End Date Clifford Cruz MD PCP - General 05/22/16 Karl Hughes OD Referring Physician Optometry 11/23/23 Arnold Bowden MD [address] [place] [address] [place] [address] Primary Eye Care Provider Ophthalmology 11/23/23 documented as of this encounter
[2025-01-01 11:22] LABS: Anion Gap 5 mmol/L (4-12); Blood Urea Nitrogen 17 mg/dL (7-17); Calcium 9.1 mg/dL (8.4-10.2); Carbon Dioxide 29 mmol/L (22-30); Chloride 104 mmol/L (98-107); Estimated Glomerular Filt Rate 50; Glucose 99 mg/dL (65-110); Potassium 3.7 mmol/L (3.4-5.0); Sodium 138 mmol/L (137-145)
== END 2025-01-01 10:09 | disposition home or self-care (01) ==
PROVIDERS: Anesthesiology; PCP Internal Medicine; Visit Provider Urology
DX: I10 Essential (primary) hypertension (principal)
CPT/HCPCS: 36415; 80048

== ENCOUNTER 2025-01-05 03:19 | Day surgery (SDC) | payer MEDICARE, SELFPAY ==
--- NOTE | 2024-12-25 10:19 | PC.NURSE ---
[facility] has started construction of its new state of the art ER which will open Spring 2026. With this, we anticipate parking may be a challenge for some our surgical patients and families. Parking spaces are limited but are available for all Surgical, obstetrics, and ER patients sharing this lot. If you arrive and find you are having a hard time finding a parking space, please note that we understand the challenges, please drive around the hospital and park near Hospital Entrance 1. When you enter this entrance, you can ask a volunteer to direct or take you back to the surgical waiting area to check in. We appreciate everyone?s understanding of these expected challenges while we build for your future. Report to the Outpatient Waiting Room, entrance under the green pavilion located off [address], at time _8:15 AM on date __01/05/25 . Planned Procedure Time: __10:15 AM .? Time changes happen often and if your time is changed the preop area will call you the afternoon before. - You and your visitor will be asked to self-screen and do not enter if you have any COVID symptoms. Please call surgeon if you need to reschedule. - A mask is optional within the hospital at this time. Patients may have clear liquids (water, carbonated beverages, clear teas, apple juice) until 3 hours prior to surgery( 7:15 AM) with a maximum of 20 ounces. - No food from midnight until time of surgery and no smoking, or chewing tobacco (or any form of nicotine). No chewing gum, candy or mints. Take only the following medications with a SIP of water on the morning of surgery: ____NONE DO NOT STOP ANY OF YOUR OTHER PRESCRIPTION MEDICATIONS PRIOR TO SURGERY EXCEPT THE FOLLOWING Hold all vitamins and supplements for 3 days per anesthesiologist.LAST DOSE 01/01/25 Medications to discontinue per physician ____HOLD ASPIRIN 7 DAYS PRE OP PER DR VALDEZ Date to take last dose___12/28/24 Please no make-up, nail macedonian, hairspray, perfume, deodorant, or body powder the day of surgery.? No jewelry (including any body piercings) or valuables the day of surgery, leave them at home.? Please take a shower or bath the night before, or the morning of, surgery with an antibacterial soap.? Wear comfortable, loose fitting clothing.? Children are encouraged to wear pajamas. - Jewelry must be removed prior to entering the operating room.? Rings and piercings that are not removed may be cut off. - The hospital will not accept responsibility for valuables.? - Please leave all valuables, including medications, at home the day of surgery. If you are going home after surgery, a licensed company truck driver must drive you home.? - NO public transportation without another adult if you receive anesthesia. - We recommend that an adult stay with you for 24 hours following discharge. - We also recommend that you do not drive, make important decision, drink alcoholic beverages, or take any drugs that were not prescribed by your health care provider for at least 24 hours after your discharge time. Follow any additional instructions given to you from your surgeon. Telephone instructions given to ____PATIENT and asked if any additional questions and then verbalized understanding. Patient advised to call surgeon office or pre surgery nurse liaison [phone] if any additional questions.
[2024-12-25 10:37] VITALS: BMI 36.3
--- NOTE | 2025-01-01 07:38 | PM.IMHP ---
H&P: HPI History of Present Illness Date/Time: 01/01/25 07:38 Chief Complaint: UUI Narrative: The patient is a 79 year old female for a post-operative visit. Note for Post-Operative: Summer is here for follow-up after PNE 11/03/2024. ?She tolerated this very well and is extremely pleased with her symptom improvement. ?States this has been life changing for her. previously she was not able to leave her house or even sit on her dining room chairs due to concerns of leakage, but now she is able to get out and about and she is so happy about this. ?Reports >50% symptom improvement. ?she has no concerns. ?Wants to proceed with full implant. Review of Systems Review of Systems: All systems reviewed & are unremarkable except as noted in HPI and below PMFSH Past Medical History Medical History Constipation Achilles tendinitis High cholesterol CHF (congestive heart failure) Mitral valve prolapse Heart disease GERD (gastroesophageal reflux disease) History of blood transfusion 1985 Surgical History Surgical History Status post de Quervain's release surgery Status post surgical removal of malignant neoplasm of skin H/O: hysterectomy Hx of cholecystectomy History of knee replacement Family History Family History Mother Lung cancer Sibling COPD (chronic obstructive pulmonary disease) Grandparent Diabetes mellitus Other Family history of arthritis Family history of lung cancer Social History Social History Smoking status: Never smoker Alcohol intake: never Substance use: unknown Substance use type: does not use Living arrangements: with family Occupation/Education: retired Gender identity (if verbalized by the patient): Female Spiritual care concerns: No Meds Home Medications and Allergies Home Medications ?Medication ?Instructions ?Recorded ?Confirmed ?Type alprazolam 0.5 mg tablet (Xanax) 0.5 mg PO DAILY 01/26/20 12/25/24 History fentanyl 50 mcg/hr transdermal 1 patch transdermal Q72H 01/26/20 12/25/24 History patch furosemide 40 mg tablet (Lasix) 40 mg PO QAM 01/26/20 12/25/24 History omeprazole 40 mg capsule,delayed 40 mg PO DAILY 01/26/20 12/25/24 History release pregabalin 75 mg capsule 75 mg PO BID 01/26/20 12/25/24 History simvastatin 10 mg tablet 20 mg PO DAILY 01/26/20 12/25/24 History aspirin 81 mg tablet 81 mg PO DAILY 08/15/20 12/25/24 History vit A 7,160 unit-C 113 mg-E 100 1 tablet PO ONCE 08/15/20 12/25/24 History hymu-avoh-[id number] tablet,delayed rel. (ICaps AREDS) amlodipine 5 mg tablet 5 mg PO HS 12/25/24 12/25/24 History hydrocodone 5 mg-acetaminophen 325 1 tablet PO PRN 12/25/24 12/25/24 History mg tablet multivitamin (Daily Value tablet) 1 tablet PO DAILY 12/25/24 12/25/24 History Allergies Allergy/AdvReac Type Severity Reaction Status Date / Time prednisone Allergy Intermediate DEEP Verified 12/25/24 10:12 DEPRESSION topiramate Allergy Intermediate MIGRAINE Verified 12/25/24 10:12 carbamazepine Allergy Mild I Verified 12/25/24 10:12 COULDN'T TALK adhesive tape Allergy Unknown RASH Verified 12/25/24 10:12 bacitracin Allergy Unknown rash Verified 12/25/24 10:12 neomycin Allergy Unknown ITCHING/BURNING Verified 12/25/24 10:12 SENSATION Penicillins Allergy Unknown Rash Verified 12/25/24 10:12 polymyxin B Allergy Unknown Rash Verified 12/25/24 10:12 clindamycin Allergy Hives Verified 12/25/24 10:12 morphine AdvReac Intermediate Other Verified 12/25/24 10:12 cephalexin (From Keflex) AdvReac Mild Rash Verified 12/25/24 10:12 nickel AdvReac Mild SKIN MILLIGAN Verified 12/25/24 10:12 NSAIDS (Non-Steroidal AdvReac Unknown Other Verified 12/25/24 10:13 Anti-Inflamma iohexol (From contrast - CT, AdvReac Hives Verified 12/25/24 10:25 X-RAY) oxytetracycline (From AdvReac Rash Verified 12/25/24 10:12 Terramycin with Polymyxin B) sertraline AdvReac Unknown Verified 12/25/24 10:12 venlafaxine AdvReac hives Verified 12/25/24 10:12 Exam Narrative: General Mental Status?-?Alert. General Appearance?-?Not in acute distress. Orientation?-?Oriented to person, place and time. Build & Nutrition?-?Well nourished and Well developed. Integumentary General Characteristics Color - normal coloration of skin. Surgical Incisions?-?Exam reveals surgical site free of infection. Head and Neck Head Head Shape - normocephalic, atraumatic. Neck Global Assessment - full range of motion, no abnormal movements. Eye Eyeball - Bilateral?-?Normal. Eyes?-?EOM Intact. Sclera/Conjunctiva - Bilateral?-?Normal. ENMT Nose and Sinuses Inspection of the nares - Bilateral - nares are symmetric, normal respiration. Mouth and Throat Lips - Upper Lip - no cyanosis noted. Chest and Lung Exam Chest and lung exam reveals ?-?normal respiratory rate. Inspection Movements - Symmetrical and no labored breathing. Accessory muscles - No use of accessory muscles in breathing. Neurologic Neurologic evaluation reveals ?-?A+O x3. Mental Status Affect - appropriate. Musculoskeletal General Extremities?-?Moves all extremities well. Assessment and Plan Assessment and plan (1) Urge incontinence of urine: Code(s): N39.41 - Urge incontinence Status: Acute Assessment and Plan: This patient has experienced unsatisfactory efficacy and/or intolerable side effects to standard medical therapy which includes Anticholinergic medications and/or Beta-3 agonists. At least 2 medications in the anticholinergic class or one anticholinergic and one Beta-3 agonist have been prescribed to this patient. In addition, this patient has failed other conservative treatment options which may include behavioral interventions (timed voiding, dietary changes, fluid limitation), pelvic floor muscle (Kegel) exercises, or pelvic floor physical therapy. These symptoms have been present at last 12 months and have resulted in a significant negative impact on quality of life. This patient has undergone a successful percutaneous trial of Sacral Neuromodulation. They have exhibited greater than 50% improvement in their urinary symptoms and would like to undergo permanent device implantation. They understand the risks including, but not limited to, discomfort, bleeding, infection, abnormal stimulation, lack of efficacy, need for revision, device damage, mechanical failure, lead migration or breakage, and need to turn the device off for (if applicable). In previous discussions this patient was also offered alternative third line therapies for their urinary condition including Tibial Neuromodulation and intradetrusor injections of Botulinum Toxin. After discussion of all risks, benefits, and alternatives of treatment, including non-treatment, they agree to proceed with implantation of a Sacral Neuromodulation device.
--- NOTE | ~2025-01-05 | XR_ITS ---
EXAMINATION: XR fluoroscopy no charge INDICATION: NEUROSTIMULATOR IMPLANT PHASE TWO . COMPARISON: None TECHNIQUE: 2 fluoroscopic images of the lumbosacral spine/pelvis were obtained during placement of a neurostimulator. Fluoroscopy exposure time was 41 seconds. Air Kerma 49.989 mGy. DAP 9.9097 mGym2. FINDINGS/IMPRESSION: No radiologist was present or involved at the time of the procedure. Static images were submitted for interpretation. Images demonstrate neurostimulator entering from posterior direction and passing through the sacrum. Fluoroscopic documentation of neurostimulator placement. Please refer to the operative note for complete procedural details. Reviewed, dictated and finalized at location A. [facility] JUSTICE
--- NOTE | 2025-01-05 07:15 | WPDHPUPDATE1 ---
History and Physical Update Update Date/Time: 01/05/25 07:15 History and Physical has been reviewed, including an updated exam of the patient. There are NO changes in the patient's condition. Risks, benefits, and alternatives have been discussed and questions answered. Patient agrees to proceed with procedure.
[2025-01-05 08:15] VITALS: BP 152/80; PULSE 62; RESP 16; TEMP 36.4; O2SAT 100
[2025-01-05] MEDS: LACTATED RINGERS 1,000 ML 30 ML IV CONT (09:10)
--- NOTE | 2025-01-05 10:05 | WPDANESEPPF ---
Anes - Initial Pre Proc Eval Procedure: Operation Date: 01/05/25 10:15 Proposed Procedures p Neurostimulator Implant Phase Two - Barak Perry MD Date/Time: 01/05/25 10:05 Surgeon: Barak Perry MD Pre Op Diagnosis: esther inconrandall Patient Data Age: 79 Gender: F Height: 1.6 m Weight: 93.3 kg Last Vital Signs Temp 36.4 C 01/05/25 08:15 Pulse 62 01/05/25 08:15 Resp 16 01/05/25 08:15 BP 152/80 H 01/05/25 08:15 Pulse Ox 100 01/05/25 08:15 O2 Del Method Room Air 01/05/25 08:15 Allergies Allergy/AdvReac Type Severity Reaction Status Date / Time prednisone Allergy Intermediate DEEP Verified 12/25/24 10:12 DEPRESSION topiramate Allergy Intermediate MIGRAINE Verified 12/25/24 10:12 carbamazepine Allergy Mild I Verified 12/25/24 10:12 COULDN'T TALK adhesive tape Allergy Unknown RASH Verified 12/25/24 10:12 bacitracin Allergy Unknown rash Verified 12/25/24 10:12 neomycin Allergy Unknown ITCHING/BURNING Verified 12/25/24 10:12 SENSATION Penicillins Allergy Unknown Rash Verified 12/25/24 10:12 polymyxin B Allergy Unknown Rash Verified 12/25/24 10:12 clindamycin Allergy Hives Verified 12/25/24 10:12 cephalexin (From Keflex) AdvReac Mild Hives Verified 01/05/25 08:36 nickel AdvReac Mild SKIN MILLIGAN Verified 12/25/24 10:12 NSAIDS (Non-Steroidal AdvReac Unknown Other Verified 12/25/24 10:13 Anti-Inflamma iohexol (From contrast - CT, AdvReac Hives Verified 12/25/24 10:25 X-RAY) oxytetracycline (From AdvReac Rash Verified 12/25/24 10:12 Terramycin with Polymyxin B) sertraline AdvReac Unknown Verified 12/25/24 10:12 venlafaxine AdvReac hives Verified 12/25/24 10:12 Home Medications ?Medication ?Instructions ?Recorded ?Confirmed ?Type alprazolam 0.5 mg tablet (Xanax) 0.5 mg PO DAILY 01/26/20 01/05/25 History fentanyl 50 mcg/hr transdermal 1 patch transdermal Q72H 01/26/20 12/25/24 History patch furosemide 40 mg tablet (Lasix) 40 mg PO QAM 01/26/20 01/05/25 History omeprazole 40 mg capsule,delayed 40 mg PO DAILY 01/26/20 01/05/25 History release pregabalin 75 mg capsule 75 mg PO BID 01/26/20 12/25/24 History simvastatin 10 mg tablet 20 mg PO DAILY 01/26/20 01/05/25 History aspirin 81 mg tablet 81 mg PO DAILY 08/15/20 01/05/25 History Held on 01/05/25. Instructions: Resume on 01/07/25. vit A 7,160 unit-C 113 mg-E 100 1 tablet PO ONCE 08/15/20 01/05/25 History tgcv-xito-rnkfru tablet,delayed rel. (ICaps AREDS) amlodipine 5 mg tablet 5 mg PO HS 12/25/24 01/05/25 History hydrocodone 5 mg-acetaminophen 325 1 tablet PO PRN 12/25/24 12/25/24 History mg tablet multivitamin (Daily Value tablet) 1 tablet PO DAILY 12/25/24 01/05/25 History hydrocodone 5 mg-acetaminophen 325 1 tablet PO Q6H PRN pain #15 tabs 01/05/25 Rx mg tablet hydrocodone 5 mg-acetaminophen 325 1 tablet PO Q6H PRN pain #20 tabs 01/05/25 Rx mg tablet Patient hx anesthesia problems: none Family hx anesthesia problems: none Results Review: All pre-operative results and documents have been reviewed as part of the pre-operative evaluation. [facility] Past Medical History Medical History Constipation Achilles tendinitis High cholesterol CHF (congestive heart failure) Mitral valve prolapse Heart disease GERD (gastroesophageal reflux disease) History of blood transfusion 1985 Surgical History Surgical History Status post de Quervain's release surgery Status post surgical removal of malignant neoplasm of skin H/O: hysterectomy Hx of cholecystectomy History of knee replacement Family History Family History Mother Lung cancer Sibling COPD (chronic obstructive pulmonary disease) Grandparent Diabetes mellitus Other Family history of arthritis Family history of lung cancer Social History Social History Smoking status: Never smoker Alcohol intake: never Substance use: unknown Substance use type: does not use Living arrangements: alone Occupation/Education: retired Gender identity (if verbalized by the patient): Female Anes - Eval Final PreProcedure Day of Procedure 01/05/25 10:05 Patient weight: obese Heart: regular rate and rhythm Lungs: clear to auscultation Airway: Mallampati scale class II Neurological: alert and oriented Last oral intake: >/= 8 hours ASA classification: III Emergent: no Anesthetic plan: proceed Anesthesia type and monitoring: general GIVS and standard monitoring Results Review: All pre-operative results and documents have been reviewed as part of the pre-operative evaluation. Informed Consent: The patient's anesthetic plan and its attendant risks and benefits were discussed with the patient/family/POA. Questions were solicited and answers provided to the satisfaction of the patient/family/POA.
[2025-01-05] MEDS: levoFLOXacin 500 MG/D5W 100 ML 500 MG/100 ML BAG 100 MG IVPB (10:29)
[2025-01-05] MEDS: BUPIVACAINE/EPINEPHRINE 0.5% 50 ML VIAL 10 ML INFILTRATE (10:58)
--- NOTE | 2025-01-05 10:58 | P.OP_ITS ---
Procedure Note - Detailed Date of Procedure 01/05/25 Pre-op Diagnosis urge incont Post-op Diagnosis Same Procedure Performed Placement of InterStim sacral neurostimulator [id number] Surgeon Barak Perry MD Gas Flow Regulator Wubbles Anesthesia MAC and Local Indications She has refractory urge incontinence. She underwent a successful trial of sacral neuromodulation. Here today for permanent device implantation Description of Procedure She was correctly identified. Informed consent obtained. From the operating room. She was given monitored anesthesia care. She was placed in a prone position. Lower back and buttock were prepped and draped sterile fashion. Time-out performed. I used fluoroscopy to identify my sacral landmarks in the AP and the lateral orientation. I anesthetized the skin over the sacrum. I entered the S3 foramen on the patient's left. The needle was monitored with fluoroscopy. I stimulated the needle and got appropriate Juanita and toe response at a low threshold. I made a skin bennett. I placed a stylet. I placed my lead introducer sheath. I then placed and deployed my lead under fluoroscopy. I stimulated the lead and got appropriate responses at a very low threshold. I marked out the site of the pulse generator. I anesthetized skin. I incised the skin. I created a subcutaneous pocket to house the pulse generator. I tunneled the lead towards this pocket. The generator was opened. It was programmed. Appropriate connections were made. The generator was placed in the pocket. Impedances were checked and found to be normal. I irrigated out the wounds. I assured hemostasis. I closed subcutaneous tissues with 2-0 Vicryl. Skin with 4-0 Vicryl. Glue was applied. She was awakened transferred to PACU in stable condition. Estimated Blood Loss 5 Pathology None sent Complications No immediate complications Condition Stable Disposition PACU
[2025-01-05 11:08] VITALS: BP 99/42; PULSE 76; RESP 20; O2SAT 98
[2025-01-05 11:40] VITALS: BP 115/42; PULSE 62; O2SAT 100
[2025-01-05] MEDS: HYDROcodone/acetaminophen (*CRX) 5-325 MG TABLET 1 TAB PO (12:09)
[2025-01-05 12:10] VITALS: BP 125/52; PULSE 62
[2025-01-05 12:30] VITALS: BP 145/51; PULSE 57
== END 2025-01-05 12:35 | disposition home or self-care (01) ==
PROVIDERS: PCP Internal Medicine; Visit Provider Urology
PROC: (CPT 64590; principal; 2025-01-05 10:15)
DX: N39.41 Urge incontinence (principal); E78.00 Pure hypercholesterolemia, unspecified; I50.9 Heart failure, unspecified; K21.9 Gastro-esophageal reflux disease without esophagitis; E66.9 Obesity, unspecified; Z68.36 Body mass index [BMI] 36.0-36.9, adult; Z79.82 Long term (current) use of aspirin; Z79.891 Long term (current) use of opiate analgesic; Z98.890 Other specified postprocedural states; Z90.49 Acquired absence of other specified parts of digestive tract; Z85.828 Personal history of other malignant neoplasm of skin; Z86.79 Personal history of other diseases of the circulatory system; Z80.1 Family history of malignant neoplasm of trachea, bronchus and lung
CPT/HCPCS: 64590; 64561; 99199; A9270; C1767; C1778; C1787; J0690; J1956; J2003; J2704; J3010; J7120